=== PATIENT | male | born 1955 | race Caucasian/White ===

== ENCOUNTER 2016-06-15 17:56 | Emergency (ER) | payer OTHER ==
--- NOTE | 2016-06-15 20:33 | ED CLINICAL REPORT ---
Clinical Report - Physicians/Mid Levels [facility] [address] [place] [address] 06/15/2016 17:57 [id number] Time Seen: 18:21 Jun 15 2016. Arrived- By private vehicle. Historian- patient. HISTORY OF PRESENT ILLNESS Chief Complaint: FLANK PAIN. It is described as cramping. Quality not described as "pain". No radiation. It is described as located in the right flank. This started about 1 weeks ago. It is gone now. At its maximum, severity described as moderate. The patient has had nausea. No loss of appetite, vomiting or diarrhea. No additional abdominal pain. (Patient has a history of a weak urinary bladder and self catheterizes. He says he's had several urinary tract infections in the past which progressed to pyelonephritis. He currently feels like he is getting right-sided pyelonephritis again. His lastCT of the urinary tract was about 2 weeks ago and was negative for kidney stones.). Similar symptoms previously: Many times. Recent medical care: The patient was seen recently by a health care provider. REVIEW OF SYSTEMS No constipation, pain with urination, urinary frequency, bloody stools or fever. No calf pain, cough, abdominal pain or dizziness. He has had nasal congestion, chills, difficulty with urination, and joint pain. All systems otherwise negative, except as recorded above. PAST HISTORY See nurses notes. Hypertension. Diabetes mellitus. Has had urinary calculi. No history of heart disease. SOCIAL HISTORY Alcohol use. PHYSICAL EXAM Appearance: Alert. Oriented X3. Eyes: Pupils equal, round and reactive to light. Eyes normal inspection. ENT: Ears normal. Nose normal. Pharynx normal. Neck: Normal inspection. Neck supple. CVS: Normal heart rate and rhythm. Heart sounds normal. Pulses normal. Respiratory: No respiratory distress. Breath sounds normal. Abdomen: Soft and nontender. Back: Moderate CVA tenderness on the right. Skin: Skin warm and dry. Normal skin color. No rash. Normal skin turgor. Extremities: Extremities exhibit normal ROM. No lower extremity edema. Neuro: Oriented X 3. No motor deficit. No sensory deficit. LABS, X-RAYS, AND EKG Laboratory Tests: UA-Culture if indicated: (MC: 06/15/2016 19:13) ( [facility] [place] 19:29) Final results Test Result Flag Units (Reference) URINE COLOR YELLOW URINE APPEARANCE CLEAR URINE GLUCOSE NEGATIVE (NEGATIVE) URINE BILIRUBIN NEGATIVE (NEGATIVE) URINE KETONE NEGATIVE (NEGATIVE) URINE SPECIFIC GRAVITY >= 1.030 (1.010-1.030) URINE PH 5.5 (5.0-8.0) URINE PROTEIN NEGATIVE (NEGATIVE) URINE UROBILINOGEN 0.2 EU/dL (0.2-1.0) URINE NITRITE NEGATIVE (NEGATIVE) URINE BLOOD TRACE-INTACT (NEGATIVE) URINE LEUK ESTERASE NEGATIVE (NEGATIVE) URINE RBC 1-3 rbc/hpf (0-1) URINE WBC 0-1 wbc/hpf (0-1) URINE EPITHELIAL CELLS 1-3 EPI/hpf (0-5) URINE BACTERIA TRACE (<1+) (NONE SEEN) URINE COMMENT CULT NOT INDICATED MUCUS 1+URINE CULTURES ARE SET-UP BASED ON THE FOLLOWING CRITERIA:POSITIVE NITRITEPOSITIVE LEUKOCYTE ESTERASEGREATER THAN 10 WHITE BLOOD CELLSMODERATE (2+) OR GREATER BACTERIA CBC w Diff: (MC: 06/15/2016 19:42) ( [facility] [place] 06/15/2016 19:51) Final results Test Result Flag Units (Reference) WHITE BLOOD COUNT 11.0 K/uL (4.5-11.5) RED BLOOD COUNT 4.88 M/uL (4.50-5.90) HEMOGLOBIN 14.3 gm/dL (13.5-17.5) HEMATOCRIT 42.5 % (41.0-53.0) MEAN CELL VOLUME 87 fL (80-100) MEAN CORPUSCULAR HGB 29 pg (26-34) MEAN CORPUSCULAR HGB CONC 34 g/dL (31-37) RED CELL DISTRIBUTION WIDTH 14.6 % (11.6-14.8) PLATELET COUNT 210 K/uL (150-400) NEUTROPHIL % 60.6 % (50-75) LYMPH % 30.9 % (25-40) MONO % 6.9 % (3-14) EOSINOPHIL % 1.5 % (0-4) BASOPHIL % 0.1 % (0-2) CMP: (MC: 06/15/2016 19:42) ( [facility] 06/15/2016 20:15) Final results Test Result Flag Units (Reference) GLUCOSE 136 H mg/dL (70-110) BUN 17 mg/dL (7-18) CREATININE 0.9 mg/dL (0.6-1.3) Estimated GFR >60 mL/min Estimated GFR- >60 mL/min Note: Persistent reduction over 3 months in eGFR<60 mL/min/1.73 m2 defines CKD. Patients with eGFR values>=60 mL/min/1.73 m2 may also have CKD if evidence ofpersistent proteinuria. Additional information may be foundat www.[email or web address].org. SODIUM 141 mmol/L (136-145) POTASSIUM 4.1 mmol/L (3.5-5.1) CHLORIDE 104 mmol/L (98-107) CARBON DIOXIDE 27 mmol/L (21-32) CALCIUM 8.7 mg/dL (8.5-10.1) TOTAL PROTEIN 7.5 g/dL (6.4-8.2) ALBUMIN 3.6 g/dL (3.3-5.0) BILIRUBIN, TOTAL 0.4 mg/dL (0.0-1.0) ALKALINE PHOSPHATASE 72 U/L (46-116) AST (SGOT) 46 H U/L (15-37) ALT (SGPT) 95 H U/L (12-78) . PROGRESS AND PROCEDURES Course of Care: Patient stable. His urine is not significantly impressive, however, it is safe catheter UA and he has had these symptoms in the past so I think gets quite reasonable to go ahead and treat empirically now with Cipro. Culture ordered. Recommended he follow up here in 48 hours if no significant Improvement. Sooner if any worsening. Disposition: Discharged in stable condition. CLINICAL IMPRESSION Right renal colic. Possible acute urinary tract infection. INSTRUCTIONS Rest at home tomorrow. Drink plenty of fluids. No dietary restrictions. Warnings: Further evaluation is necessary. GENERAL WARNINGS: Return or contact your physician immediately if your condition worsens or changes unexpectedly, if not improving as expected, or if other problems arise. SPECIFICALLY, return if you develop fever, vomiting, the inability to keep fluids down or fainting; or if there is no improvement in the pain in the back. Prescription Medications: Cipro 500 mg: take 1 tab orally every day for 7 days. No refills. Substitution is permissible. Follow-up: Follow up with your doctor in four days even if well. (Electronically signed by Maicol Ramos, 06/16/2016 0:17)
--- NOTE | 2016-06-15 20:33 | ED ORDER SUMMARY ---
..... Patient: JAYME KINSEY OrderSheet [facility] VisitID: [id number] [place] [address] 60y, M Registration Date/Time: 06/15/2016 ORDER SHEET Weight: 125.1 kg (stated) Allergies: NKA GENERAL ORDERS: CBC w Diff Urgent (18:33 06/15/2016 JCoates) (Ack 19:11 CHagerty ER Retail Salesworker) (19:43 ASchmuck) CMP Urgent (18:33 06/15/2016 JCoates) (Ack 19:11 CHagerty ER Retail Salesworker) (19:43 ASchmuck) UA-Culture if indicated Urgent (18:33 06/15/2016 JCoates) (Ack 19:11 CHagerty ER Retail Salesworker) (19:43 ASchmuck) Culture, Urine (Urine, Catheter) Urgent (20:31 06/15/2016 JCoates) (Ack 20:34 CHagerty ER Retail Salesworker) (20:34 CHagerty ER Retail Salesworker) MEDICATION ORDERS: Ciprofloxacin PO 500 mg (NOW) (20:30 06/15/2016 JCoates) (Ack 20:41 ASchmuck) (20:49 ASchmuck) IV FLUIDS: IV NS : initial bolus 1000 mL (1000 mL/hr), then 1000 mL/hr for X1 (NOW) (18:32 06/15/2016 JCoates) (Ack 19:02 SReitz R.N.) (19:55 ASchmuck) Dilaudid IV 0.5 mg (NOW) (18:32 06/15/2016 JCoates) (Ack 19:02 SReitz R.N.) (19:55 ASchmuck) Zofran IV 4 mg (NOW) (18:32 06/15/2016 JCoates) (Ack 19:02 SReitz R.N.) (19:56 ASchmuck) IV Saline Lock (18:33 06/15/2016 JCoates) (Ack 19:02 SReitz R.N.) (19:43 ASchmuck) ORDER SHEET NOTES: [Electronically signed by Ximena Lucas (20:52 06/15/2016)] [Electronically signed by Maicol Ramos (00:17 06/16/2016)] [Electronically locked/signed by Ximena Lucas (20:52 06/15/2016)]
--- NOTE | 2016-06-15 20:33 | ED ORDER SUMMARY ---
..... Patient: JAYME KINSEY OrderSheet [facility] VisitID: [id number] [place] [address] 60y, M Registration Date/Time: 06/15/2016 ORDER SHEET Weight: 125.1 kg (stated) Allergies: NKA GENERAL ORDERS: CBC w Diff Urgent (18:33 06/15/2016 JCoates) (Ack 19:11 CHagerty ER Peer Counselor) (19:43 ASchmuck) CMP Urgent (18:33 06/15/2016 JCoates) (Ack 19:11 CHagerty ER Peer Counselor) (19:43 ASchmuck) UA-Culture if indicated Urgent (18:33 06/15/2016 JCoates) (Ack 19:11 CHagerty ER Peer Counselor) (19:43 ASchmuck) Culture, Urine (Urine, Catheter) Urgent (20:31 06/15/2016 JCoates) (Ack 20:34 CHagerty ER Peer Counselor) (20:34 CHagerty ER Peer Counselor) MEDICATION ORDERS: Ciprofloxacin PO 500 mg (NOW) (20:30 06/15/2016 JCoates) (Ack 20:41 ASchmuck) (20:49 ASchmuck) IV FLUIDS: IV NS : initial bolus 1000 mL (1000 mL/hr), then 1000 mL/hr for X1 (NOW) (18:32 06/15/2016 JCoates) (Ack 19:02 SReitz R.N.) (19:55 ASchmuck) Dilaudid IV 0.5 mg (NOW) (18:32 06/15/2016 JCoates) (Ack 19:02 SReitz R.N.) (19:55 ASchmuck) Zofran IV 4 mg (NOW) (18:32 06/15/2016 JCoates) (Ack 19:02 SReitz R.N.) (19:56 ASchmuck) IV Saline Lock (18:33 06/15/2016 JCoates) (Ack 19:02 SReitz R.N.) (19:43 ASchmuck) ORDER SHEET NOTES: [Electronically signed by Ximena Lucas (20:52 06/15/2016)] [Electronically signed by Maicol Ramos (00:17 06/16/2016)] [Electronically locked/signed by Ximena Lucas (20:52 06/15/2016)]
--- NOTE | 2016-06-15 20:33 | ED NURSING NOTES ---
Clinical Report - Nurses [facility] [address] [place] [address] 06/15/2016 17:57 Patient: JAYME KINSEY TRIAGE Triage time 18:22. Acuity: LEVEL 4. Chief Complaint: TESTICULAR PAIN and DIFFICULTY VOIDING (right flank pain). Alert. No acute distress. ( "Right kidney is hot and inflamed, same for the right testical." Pt. states he has a hx of UTI's and he thinks he may have one tonight or a kidney infection. He said he self cath's which is why he is getting all these infections.). SEPSIS SCREEN: Sepsis Screen. Negative (no infection suspected/documented). KAROLYN COMA SCORE: [place] Coma Scale: 15- eyes open spontaneously (4); best verbal response- oriented x 4 (5); best motor response- obeys commands (6). --18:45 Radha Torres R.N. 18:22 06/15/16. BP: 114/78. HR: 86. RR: 18. O2 saturation: 97%. Temp: 98. F. Pain level now 3/10. --18:45 Radha Torres R.N. Weight: 125.1 kg stated. Height/Length: 70 inches Per Patient. BMI: 39.6. --18:24 Radha Torres R.N. Medications Atorvastatin Calcium Oral (Tablet 10 mg) 1 tablet, daily. Carbidopa-Levodopa Oral 50/200 mg, daily. Lisinopril Oral (Tablet 5 mg) 1 tablet, daily. MetFORMIN HCl Oral 500 mg, 2x a day. Metoprolol Tartrate Oral (Tablet 25 mg) 1 tablet, 2x daily. Propranolol HCl 20mg , 3x a day (prn). Salsalate Oral (Tablet 750 mg) 1 tablet, daily as needed (every 8 hours as needed). --18:41 Radha Torres R.N. Antidepressant. --18:42 Radha Torres R.N. Allergies NKA. --18:41 Melissa, Radha, R.N. History Arrived by private vehicle. Historian: patient. Unaccompanied. Primary physician (Pascual). Onset. (1 week ago). 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 PAST MEDICAL HX: Immunizations: up-to-date. SOCIAL HX: Never smoker. Occasional alcohol use. No drug use. No infectious disease exposure. ABUSE ASSESSMENT: No report of abuse. NUTRITIONAL RISK ASSESSMENT: The nutritional risk assessment revealed no deficiencies. FUNCTIONAL ASSESSMENT: Functional assessment: no impairments noted. LEARNING NEEDS ASSESSMENT: The learning needs assessment revealed no barriers. --18:45 Radha Torres R.N. PROBLEMS: UTI - Urinary Tract Infection. Ureterolithiasis. Nephrolithiasis. COPD - Chronic Obstructive Pulmonary Disease. Contusion. Crush Injury. Diabetes Mellitus. Conjunctivitis. Blepharitis. Influenza. Acute Pain. Back Pain. Nail Avulsion. Chronic Back Pain. Depression. Hyperlipidemia. Wound Infection. Burn. Elevated Cholesterol. Laceration. Hypertension. --18:42 Radha Torres R.N. Renal Colic [RuleOut]. --20:33 Maicol Ramos The following entry was modified by Maicol Ramos, 20:33 <<STRICKEN ENTRY-- Renal Colic. --21:10 Radha Torres R.N. --END STRIKE>>. ADDITIONAL SURGERIES: Appendectomy. --18:42 Radha Torres R.N. Interventions ID band on patient. Ambulatory. --18:45 Radha Torres R.N. PHYSICAL ASSESSMENT Ambulatory to room. GENERAL / NEURO / PSYCH: Alert. Appears in no acute distress. HEENT: Mucous membranes are pink. RESPIRATORY: Respirations not labored. CVS: Capillary refill less than 2 seconds. GI / : Abdomen soft. SKIN: Skin is warm and dry. --18:28 Radha Torres R.N. NURSING PROGRESS NOTES Patient gowned. Head of bed elevated. Two patient identifiers checked. Call light placed in reach. Side rails up x 2. Bed placed in lowest position. Brakes of bed on. Patient ready for evaluation- chart flagged. --18:28 Radha Torres R.N. 19:14 06/15/16. Patient ID band checked for patient name, birthdate and medical record number: patient confirmed. Instructions provided to collect clean catch urine and patient verbalized understanding. Clean catch urine collected with return of yellow-colored clear urine; odor is normal; sample sent to lab for urinalysis and culture. Specimen labeled in the presence of the patient. --19:14 Андрей Wilcox R.N. Care transferred and report given (to WILLEM Bueno). --19:22 Radha Torres R.N. 19:43 06/15/2016 Site #1 started via IV in the left antecubital space with an 20g angiocath, with aseptic technique and good blood return; one attempt. Blood drawn: rainbow set. Labeled in the presence of the patient and sent to the lab. Saline lock flushed with 10 mL saline. --19:43 Ximena Lucas 19:54 06/15/16. BP: 114/68. HR: 85. RR: 18. O2 saturation: 97%. Pain level now: 06/08. --19:55 Ximena Lucas 19:50 06/15/2016 Started bag #1 1000 mL IV Fluids IV NS (Saline); at 1000 mL/hr over 1 hour(s) via site #1 via dial-a-flow. Allergies verified and confirmed 5 rights. IV patency established. IV site checked: no pain, redness, or swelling. IV flushed thoroughly pre- and post-medication administration. --19:55 Ximena Lucas 19:53 06/15/2016 Zofran (Ondansetron HCl) IVP 4 mg given over 1 minute(s) via site #1. Allergies verified and confirmed 5 rights. IV patency established. IV site checked: no pain, redness, or swelling. IV flushed thoroughly pre- and post-medication administration. IVP given by RN. --19:56 Ximena Lucas 19:54 06/15/2016 Dilaudid (HYDROmorphone HCl PF) IVP 0.5 mg given over 30 second(s) via site #1. Allergies verified, confirmed 5 rights and sedative warning given to the patient. IV patency established. IV site checked: no pain, redness, or swelling. IV flushed thoroughly pre- and post-medication administration. IVP given by RN. --19:55 Ximena Lucas 20:44 06/15/2016 Ciprofloxacin (Ciprofloxacin) PO Tablets 500 mg given. Allergies verified and confirmed 5 rights. --20:49 Ximena Lucas 20:49 06/15/2016 Site #1 removed upon discharge. Catheter intact. Pressure dressing applied. --20:49 Ximena Lucas 20:49 06/15/2016 IV Fluids IV NS Discontinued: bag #1 infused upon discharge. Total amount infused: 1000 mL. IV patency established. IV site checked: no pain, redness, or swelling. IV flushed thoroughly. --20:49 Ximena Lucas 20:49 06/15/2016 IV Saline Lock Drip IV Discontinued: bag #1. Total amount infused: 0 mL. --20:49 Ximena Lucas. DISPOSITION / DISCHARGE 20:51 06/15/16. Departure time: 20:51 Jun 15 2016. Condition at departure: improved. The goals identified in the patient's plan of care were met. No learning barriers present. Discharge instructions provided and reviewed with the patient. Reviewed warnings (Patient verbalized understanding of sedation warning. Patient verbalized awareness of warning s/sx listed in dc paperwork.). Reviewed medication(s) side effects, precautions, dosing and course information. Prescription(s) given to the patient (Cipro). Treatments reviewed. Reviewed referral to a primary care physician for followup. Patient verbalized understanding. Written instructions provided in Japanese. The patient was discharged by the physician access services assistant. He was discharged home and accompanied by family. He left the Emergency Department ambulatory and via private vehicle. Family member driving. FALL RISK ASSESSMENT: Fall risk assessment completed. No fall risk identified. --20:51 Ximena Lucas 20:49 06/15/16. BP: 115/51. HR: 91. RR: 17. O2 saturation: 99% on room air. Temp: 97.9 F. Pain level now: 0/10. --20:51 Ximena Lucas. Locked/Released at 06/15/2016 20:52 by Ximena Lucas,
--- NOTE | 2016-06-16 00:17 | ED MAR SUMMARY ---
..... Medication Administration Record [facility] [address] [place] [address] Patient: JAYME KINSEY Visit ID: [id number] 60y, M Weight: 125.1 kg Height/Length: 70 in BMI: 39.6 ALLERGIES: NKA Start 19:50 06/15/2016 Ximena Lucas,, Stop 20:49 06/15/2016 Ximena Lucas, Medication Administered: IV NS (SALINE), Dose: IV Fluids over 1 hour(s), Rate: 1000 mL/hr, Dispensed: 1000 mL bag, Site: #1 left AC. Medication Ordered: IV NS : initial bolus 1000 mL (1000 mL/hr), then 1000 mL/hr for X1 (NOW). Given 19:53 06/15/2016 Ximena Lucas, Medication Administered: ZOFRAN [IVP] (ONDANSETRON HCL), Dose: 4 mg IVP over 1 minute(s), Site: #1 left AC. Medication Ordered: Zofran IV 4 mg (NOW). Given 19:54 06/15/2016 Ximena Lucas, Medication Administered: DILAUDID [IVP] (HYDROMORPHONE HCL PF), Dose: 0.5 mg IVP over 30 second(s), Site: #1 left AC. Medication Ordered: Dilaudid IV 0.5 mg (NOW). Given 20:44 06/15/2016 Ximena Lucas, Medication Administered: CIPROFLOXACIN [PO] (CIPROFLOXACIN), Dose: 500 mg Tablets PO. Medication Ordered: Ciprofloxacin PO 500 mg (NOW).
--- NOTE | 2016-06-16 00:17 | ED MAR SUMMARY ---
..... Medication Administration Record [facility] [address] [place] [address] Patient: JAYME KINSEY Visit ID: [id number] 60y, M Weight: 125.1 kg Height/Length: 70 in BMI: 39.6 ALLERGIES: NKA Start 19:50 06/15/2016 Ximena Lucas,, Stop 20:49 06/15/2016 Ximena Lucas, Medication Administered: IV NS (SALINE), Dose: IV Fluids over 1 hour(s), Rate: 1000 mL/hr, Dispensed: 1000 mL bag, Site: #1 left AC. Medication Ordered: IV NS : initial bolus 1000 mL (1000 mL/hr), then 1000 mL/hr for X1 (NOW). Given 19:53 06/15/2016 Ximena Lucas, Medication Administered: ZOFRAN [IVP] (ONDANSETRON HCL), Dose: 4 mg IVP over 1 minute(s), Site: #1 left AC. Medication Ordered: Zofran IV 4 mg (NOW). Given 19:54 06/15/2016 Ximena Lucas, Medication Administered: DILAUDID [IVP] (HYDROMORPHONE HCL PF), Dose: 0.5 mg IVP over 30 second(s), Site: #1 left AC. Medication Ordered: Dilaudid IV 0.5 mg (NOW). Given 20:44 06/15/2016 Ximena Lucas, Medication Administered: CIPROFLOXACIN [PO] (CIPROFLOXACIN), Dose: 500 mg Tablets PO. Medication Ordered: Ciprofloxacin PO 500 mg (NOW).
--- NOTE | 2016-06-16 00:17 | ED DISCHARGE INSTRUCTIONS ---
Patient: JAYME KINSEY General Instructions [facility] VisitID: [id number] [place] [address] 60y, M Registration Date/Time: 06/15/2016 Right renal colic. INSTRUCTIONS Rest at home tomorrow. Drink plenty of fluids. No dietary restrictions. Warnings: Further evaluation is necessary. GENERAL WARNINGS: Return or contact your physician immediately if your condition worsens or changes unexpectedly, if not improving as expected, or if other problems arise. SPECIFICALLY, return if you develop fever, vomiting, the inability to keep fluids down or fainting; or if there is no improvement in the pain in the back. Prescription Medications: Cipro 500 mg: take 1 tab orally every day for 7 days. No refills. Substitution is permissible. Follow-up: Follow up with your doctor in four days even if well. ADDITIONAL INFORMATION Ciprofloxacin Hydrochloride Oral tablet What is this medicine? CIPROFLOXACIN (sip mayte FLOX a sin) is a quinolone antibiotic. It is used to treat certain kinds of bacterial infections. It will not work for colds, flu, or other viral infections. How should I use this medicine? Take this medicine by mouth with a glass of water. Follow the directions on the prescription label. Take your medicine at regular intervals. Do not take your medicine more often than directed. Take all of your medicine as directed even if you think your are better. Do not skip doses or stop your medicine early. You can take this medicine with food or on an empty stomach. It can be taken with a meal that contains dairy or calcium, but do not take it alone with a dairy product, like milk or yogurt or calcium-fortified juice. A special MedGuide will be given to you by the pharmacist with each prescription and refill. Be sure to read this information carefully each time. Talk to your wood carving lathe operator regarding the use of this medicine in children. Special care may be needed. What side effects may I notice from receiving this medicine? Side effects that you should report to your doctor or health palliative care nurse as soon as possible: - allergic reactions like skin rash, itching or hives, swelling of the face, lips, or tongue - breathing problems - confusion, nightmares or hallucinations - feeling faint or lightheaded, falls - irregular heartbeat - joint, muscle or tendon pain or swelling - pain or trouble passing urine -persistent headache with or without blurred vision - redness, blistering, peeling or loosening of the skin, including inside the mouth - seizure - unusual pain, numbness, tingling, or weakness Side effects that usually do not require medical attention (report to your doctor or health palliative care nurse if they continue or are bothersome): - diarrhea - nausea or stomach upset - white patches or sores in the mouth What may interact with this medicine? Do not take this medicine with any of the following medications: cisapride droperidol terfenadine tizanidine This medicine may also interact with the following medications: antacids caffeine cyclosporin didanosine (ddI) buffered tablets or powder medicines for diabetes medicines for inflammation like ibuprofen, naproxen methotrexate multivitamins omeprazole phenytoin probenecid sucralfate theophylline warfarin What if I miss a dose? If you miss a dose, take it as soon as you can. If it is almost time for your next dose, take only that dose. Do not take double or extra doses. Where should I keep my medicine? Keep out of the reach of children. Store at room temperature below 30 degrees C (86 degrees F). Keep container tightly closed. Throw away any unused medicine after the expiration date. What should I tell my health care provider before I take this medicine? They need to know if you have any of these conditions: -bone problems -cerebral disease -joint problems -irregular heartbeat -kidney disease -liver disease -myasthenia gravis -seizure disorder -tendon problems -an unusual or allergic reaction to ciprofloxacin, other antibiotics or medicines, foods, dyes, or preservatives - or trying to get -breast-feeding What should I watch for while using this medicine? Tell your doctor or health palliative care nurse if your symptoms do not improve. Do not treat diarrhea with over the counter products. Contact your doctor if you have diarrhea that lasts more than 2 days or if it is severe and watery. You may get drowsy or dizzy. Do not drive, use machinery, or do anything that needs mental alertness until you know how this medicine affects you. Do not stand or sit up quickly, especially if you are an older patient. This reduces the risk of dizzy or fainting spells. This medicine can make you more sensitive to the sun. Keep out of the sun. If you cannot avoid being in the sun, wear protective clothing and use sunscreen. Do not use sun lamps or tanning beds/booths. Avoid antacids, aluminum, calcium, iron, magnesium, and zinc products for 6 hours before and 2 hours after taking a dose of this medicine. You have been given the following additional information: Ciprofloxacin Hydrochloride Oral tablet Rest at home tomorrow. (Electronically signed by Maicol Ramos, 06/16/2016 0:17)
--- NOTE | 2016-06-16 00:17 | ED MED RECONCILIATION SUMMARY ---
Patient: JAYME KINSEY Medication Reconciliation Report [facility] VisitID: [id number] [address] [place] [address] 60y, M Registration Date/Time: 06/15/2016 Weight: 125.1 kg Height/Length: 70 in. BMI: 39.6 ALLERGIES: NKA The patient's Home Medications are listed below: THE FOLLOWING MEDICATIONS NEED TO BE RECONCILED: Antidepressant Atorvastatin Calcium Oral (10 mg) 1 tablet, daily Carbidopa-Levodopa Oral 50/200 mg, daily Lisinopril Oral (5 mg) 1 tablet, daily MetFORMIN HCl Oral 500 mg, 2x a day Metoprolol Tartrate Oral (25 mg) 1 tablet, 2x daily Propranolol HCl 20mg , 3x a day, prn Salsalate Oral (750 mg) 1 tablet, daily , every 8 hours as needed The source(s) of the original Home Medication information: Not obtained. The following Medications were given to the patient in the Emergency Department: IV NS IV Fluids bolus 0, then 1000 mL/hr, administered: 06/15/2016 7:50:00 PM Dilaudid [IVP] IVP 0.5 mg, administered: 06/15/2016 7:54:00 PM Zofran [IVP] IVP 4 mg, administered: 06/15/2016 7:53:00 PM Ciprofloxacin [PO] PO 500 mg, administered: 06/15/2016 8:44:00 PM The following Medications were prescribed to the patient: Cipro 500 mg: take 1 tab orally every day for 7 days. No refills. Substitution is permissible. -- Maicol Ramos
--- NOTE | 2016-06-16 00:17 | ED DISCHARGE INSTRUCTIONS ---
Patient: JAYME KINSEY General Instructions [facility] VisitID: [id number] [place] [address] 60y, M Registration Date/Time: 06/15/2016 Right renal colic. INSTRUCTIONS Rest at home tomorrow. Drink plenty of fluids. No dietary restrictions. Warnings: Further evaluation is necessary. GENERAL WARNINGS: Return or contact your physician immediately if your condition worsens or changes unexpectedly, if not improving as expected, or if other problems arise. SPECIFICALLY, return if you develop fever, vomiting, the inability to keep fluids down or fainting; or if there is no improvement in the pain in the back. Prescription Medications: Cipro 500 mg: take 1 tab orally every day for 7 days. No refills. Substitution is permissible. Follow-up: Follow up with your doctor in four days even if well. ADDITIONAL INFORMATION Ciprofloxacin Hydrochloride Oral tablet What is this medicine? CIPROFLOXACIN (sip mayte FLOX a sin) is a quinolone antibiotic. It is used to treat certain kinds of bacterial infections. It will not work for colds, flu, or other viral infections. How should I use this medicine? Take this medicine by mouth with a glass of water. Follow the directions on the prescription label. Take your medicine at regular intervals. Do not take your medicine more often than directed. Take all of your medicine as directed even if you think your are better. Do not skip doses or stop your medicine early. You can take this medicine with food or on an empty stomach. It can be taken with a meal that contains dairy or calcium, but do not take it alone with a dairy product, like milk or yogurt or calcium-fortified juice. A special MedGuide will be given to you by the pharmacist with each prescription and refill. Be sure to read this information carefully each time. Talk to your webfocus developer regarding the use of this medicine in children. Special care may be needed. What side effects may I notice from receiving this medicine? Side effects that you should report to your doctor or health child care team lead as soon as possible: - allergic reactions like skin rash, itching or hives, swelling of the face, lips, or tongue - breathing problems - confusion, nightmares or hallucinations - feeling faint or lightheaded, falls - irregular heartbeat - joint, muscle or tendon pain or swelling - pain or trouble passing urine -persistent headache with or without blurred vision - redness, blistering, peeling or loosening of the skin, including inside the mouth - seizure - unusual pain, numbness, tingling, or weakness Side effects that usually do not require medical attention (report to your doctor or health child care team lead if they continue or are bothersome): - diarrhea - nausea or stomach upset - white patches or sores in the mouth What may interact with this medicine? Do not take this medicine with any of the following medications: cisapride droperidol terfenadine tizanidine This medicine may also interact with the following medications: antacids caffeine cyclosporin didanosine (ddI) buffered tablets or powder medicines for diabetes medicines for inflammation like ibuprofen, naproxen methotrexate multivitamins omeprazole phenytoin probenecid sucralfate theophylline warfarin What if I miss a dose? If you miss a dose, take it as soon as you can. If it is almost time for your next dose, take only that dose. Do not take double or extra doses. Where should I keep my medicine? Keep out of the reach of children. Store at room temperature below 30 degrees C (86 degrees F). Keep container tightly closed. Throw away any unused medicine after the expiration date. What should I tell my health care provider before I take this medicine? They need to know if you have any of these conditions: -bone problems -cerebral disease -joint problems -irregular heartbeat -kidney disease -liver disease -myasthenia gravis -seizure disorder -tendon problems -an unusual or allergic reaction to ciprofloxacin, other antibiotics or medicines, foods, dyes, or preservatives - or trying to get -breast-feeding What should I watch for while using this medicine? Tell your doctor or health child care team lead if your symptoms do not improve. Do not treat diarrhea with over the counter products. Contact your doctor if you have diarrhea that lasts more than 2 days or if it is severe and watery. You may get drowsy or dizzy. Do not drive, use machinery, or do anything that needs mental alertness until you know how this medicine affects you. Do not stand or sit up quickly, especially if you are an older patient. This reduces the risk of dizzy or fainting spells. This medicine can make you more sensitive to the sun. Keep out of the sun. If you cannot avoid being in the sun, wear protective clothing and use sunscreen. Do not use sun lamps or tanning beds/booths. Avoid antacids, aluminum, calcium, iron, magnesium, and zinc products for 6 hours before and 2 hours after taking a dose of this medicine. You have been given the following additional information: Ciprofloxacin Hydrochloride Oral tablet Rest at home tomorrow. (Electronically signed by Maicol Ramos, 06/16/2016 0:17)
--- NOTE | 2016-06-16 00:17 | ED MED RECONCILIATION SUMMARY ---
Patient: JAYME KINSEY Medication Reconciliation Report [facility] VisitID: [id number] [address] [place] [address] 60y, M Registration Date/Time: 06/15/2016 Weight: 125.1 kg Height/Length: 70 in. BMI: 39.6 ALLERGIES: NKA The patient's Home Medications are listed below: THE FOLLOWING MEDICATIONS NEED TO BE RECONCILED: Antidepressant Atorvastatin Calcium Oral (10 mg) 1 tablet, daily Carbidopa-Levodopa Oral 50/200 mg, daily Lisinopril Oral (5 mg) 1 tablet, daily MetFORMIN HCl Oral 500 mg, 2x a day Metoprolol Tartrate Oral (25 mg) 1 tablet, 2x daily Propranolol HCl 20mg , 3x a day, prn Salsalate Oral (750 mg) 1 tablet, daily , every 8 hours as needed The source(s) of the original Home Medication information: Not obtained. The following Medications were given to the patient in the Emergency Department: IV NS IV Fluids bolus 0, then 1000 mL/hr, administered: 06/15/2016 7:50:00 PM Dilaudid [IVP] IVP 0.5 mg, administered: 06/15/2016 7:54:00 PM Zofran [IVP] IVP 4 mg, administered: 06/15/2016 7:53:00 PM Ciprofloxacin [PO] PO 500 mg, administered: 06/15/2016 8:44:00 PM The following Medications were prescribed to the patient: Cipro 500 mg: take 1 tab orally every day for 7 days. No refills. Substitution is permissible. -- Maicol Ramos
== END 2016-06-15 20:51 | disposition home or self-care (01) ==
LOC: ED SRH 17:56
DX: N23 Unspecified renal colic (principal); Z87.440 Personal history of urinary (tract) infections; I10 Essential (primary) hypertension; E11.9 Type 2 diabetes mellitus without complications
CPT/HCPCS: 90004; 90100; 90469; 95059

== ENCOUNTER → 2016-06-27 | Emergency (ER) | payer OTHER ==
--- NOTE | 2016-06-27 16:48 | ED ORDER SUMMARY ---
..... Patient: JAYME KINSEY OrderSheet [facility] VisitID: [id number] [address] [place] [address] 60y, M Registration Date/Time: 06/27/2016 ORDER SHEET Weight: 125.1 kg (stated) Allergies: NKA GENERAL ORDERS: UA-Culture if indicated Urgent (15:08 06/27/2016 Glory A.R.N.P.) (Ack 15:09 Esperanza) (15:20 Ya Mauricio) MEDICATION ORDERS: IV FLUIDS: ORDER SHEET NOTES: [Electronically signed by Ingrid CraigR.N.PBreanne (17:12 06/27/2016)] [Electronically signed by Natasha Shaikh R.N. (19:13 06/27/2016)] [Electronically locked/signed by Natasha Shaikh R.N. (19:13 06/27/2016)]
--- NOTE | 2016-06-27 16:48 | ED NURSING NOTES ---
Clinical Report - Nurses [facility] [address] [place] [address] 06/27/2016 14:41 Patient: JAYME KINSEY TRIAGE Triage time 14:47 Jun 27 2016. Acuity: LEVEL 3. Chief Complaint: TESTICULAR PAIN and (low back pain). Alert. No acute distress. --14:54 Natasha Shaikh R.N. 14:47 06/27/16. BP: 112/73. HR: 80. RR: 20. O2 saturation: 99%. Temp: 98 F. Pain level now: 06/08. --14:54 Natasha Shaikh R.N. Weight: 125.1 kg stated. Height/Length: 70 inches Per Patient. BMI: 39.6. --14:53 Natasha Shaikh R.N. Medications Atorvastatin Calcium Oral (Tablet 10 mg) 1 tablet, daily. Carbidopa-Levodopa Oral 50/200 mg, daily. Lisinopril Oral (Tablet 5 mg) 1 tablet, daily. MetFORMIN HCl Oral 500 mg, 2x a day. Metoprolol Tartrate Oral (Tablet 25 mg) 1 tablet, 2x daily. Propranolol HCl 20mg , 3x a day (prn). Salsalate Oral (Tablet 750 mg) 1 tablet, daily as needed (every 8 hours as needed). --14:50 Natasha Shaikh R.N. Allergies NKA. --14:50 Natasha Shaikh R.N. History Arrived by private vehicle. Historian: patient. This is a recurrent problem. (about 1 weeks). He has had fever and testicular pain. 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 SOCIAL HX: Never smoker. Occasional alcohol use. No drug use. No infectious disease exposure. FALL RISK ASSESSMENT: Fall risk assessment completed. No fall risk identified. NUTRITIONAL RISK ASSESSMENT: The nutritional risk assessment revealed no deficiencies. FUNCTIONAL ASSESSMENT: Functional assessment: no impairments noted. LEARNING NEEDS ASSESSMENT: The learning needs assessment revealed no barriers. ABUSE ASSESSMENT: Abuse assessment: The patient was asked "Do you feel safe in your home?". SKIN INTEGRITY ASSESSMENT: Skin integrity risk assessment completed. No skin integrity risk identified. --14:54 Natasha Shaikh R.N. PROBLEMS: Urinary Calculi. UTI - Urinary Tract Infection. Ureterolithiasis. Nephrolithiasis. COPD - Chronic Obstructive Pulmonary Disease. Contusion. Crush Injury. Diabetes Mellitus. Conjunctivitis. Blepharitis. Influenza. Acute Pain. Back Pain. Nail Avulsion. Suture Removal. Chronic Back Pain. Depression. Hyperlipidemia. Wound Infection. Burn. Immunizations. Last Tetanus. Elevated Cholesterol. Tetanus Status. Laceration. Hypertension. --14:51 Natasha Shaikh R.N. Renal Colic [RuleOut]. UTI - Urinary Tract Infection [RuleOut]. --14:51 Natasha Shaikh R.N. ADDITIONAL SURGERIES: Appendectomy. --14:51 Natasha Shaikh R.N. Lithotripsy. --14:52 Natasha Shaikh R.N. Interventions ID and allergy band on patient. To room. --14:54 Natasha Shaikh R.N. PHYSICAL ASSESSMENT GENERAL / NEURO / PSYCH: Alert. Oriented X 4. Appears in no acute distress. RESPIRATORY: Respirations not labored. CVS: Capillary refill less than 2 seconds. GI / : Abdominal tenderness. SKIN: Skin is warm and dry. --14:55 Natasha Shaikh R.N. NURSING PROGRESS NOTES Patient gowned. Head of bed elevated. Two patient identifiers checked. Call light placed in reach. Side rails up x 1. Bed placed in lowest position. Brakes of bed on. Patient ready for evaluation- chart flagged. --14:55 Natasha Shaikh R.N. DISPOSITION / DISCHARGE 17:01 06/27/16. BP: 124/70. HR: 97. O2 saturation: 97%. Pain level now: 05/08. --17:02 Natasha Shaikh R.N. Departure time: 17:Jun 27 2016. Condition at departure: unchanged. No learning barriers present. Discharge instructions provided and reviewed with the patient. Reviewed medication(s) side effects, precautions, dosing and course information. Patient verbalized understanding. Written instructions provided in Austrian. The patient was discharged home. He left the Emergency Department ambulatory and via private vehicle. Spouse driving (spousal). --17:03 Natasha Shaikh R.N. Locked/Released at 06/27/2016 19:13 by Natasha Shaikh R.N.
--- NOTE | 2016-06-27 16:48 | ED CLINICAL REPORT ---
Clinical Report - Physicians/Mid Levels [facility] [address] [place] [address] 06/27/2016 14:41 Patient: JAYME KINSEY Time Seen: 14:57; upon arrival, initial patient contact, initial documentation, patient care assumed. Arrived- By private vehicle. Historian- patient. HISTORY OF PRESENT ILLNESS Chief Complaint: TESTICULAR PAIN. This started about 1 weeks ago and is still present. The problem is described as moderate. No penile discharge, discomfort with urination, urinary frequency, genital lesion or urgency of urination. No Byrd catheter problem, inguinal swelling or problem with the foreskin. The patient has had testicular pain. He has had mild, constant right-sided flank pain. Able to void. Not voiding only small amounts. Sexual history is noncontributory. (self caths 4-6xdaily, was taking cipro, but thinks cipro isn't working anymore). Similar symptoms previously: Chronically, as bad. Recent medical care: Not recently seen/assessed. REVIEW OF SYSTEMS The patient has had fever of 99 F, flank pain and mild, constant abdominal pain. The pain is described as located in the suprapubic region and lower abdomen. No hematuria, vomiting, diarrhea, chest pain or difficulty breathing. All systems otherwise negative, except as recorded above. PAST HISTORY See nurses notes. ( PROBLEMS: Urinary Calculi. UTI - Urinary Tract Infection. Ureterolithiasis. Nephrolithiasis. COPD - Chronic Obstructive Pulmonary Disease. Contusion. Crush Injury. Diabetes Mellitus. Conjunctivitis. Blepharitis. Influenza. Acute Pain. Back Pain. Nail Avulsion. Suture Removal. Chronic Back Pain. Depression. Hyperlipidemia. Wound Infection. Burn. Immunizations. Last Tetanus. Elevated Cholesterol. Tetanus Status. Laceration. Hypertension. --14:51 Natasha Shaikh R.N. Renal Colic [RuleOut]. UTI - Urinary Tract Infection [RuleOut]. --14:51 Natasha Shaikh R.N. ADDITIONAL SURGERIES: Appendectomy. --14:51 Knebel, Natasha, R.N. Lithotripsy. --14:52 Natasha Shaikh R.N.). SOCIAL HISTORY Never smoker. Occasional alcohol use. No drug use. No recent travel. Is a local resident. FAMILY HISTORY Negative. ADDITIONAL NOTES The nursing notes have been reviewed with agreement regarding the chief complaint, HPI, ROS, PMH and patient medications and allergies. PHYSICAL EXAM Vital Signs: 06/27/2016 14:47 BP: 112/73. HR: 80. RR: 20. O2 saturation: 99%. Temp: 98 F. Pain level now: 210. Have been reviewed as normal and appear to be correct. Appearance: Alert. Oriented X3. No acute distress. (pt self cathing himself upon entering room). ENT: Normal external inspection. Pharynx normal. Neck: Neck supple. CVS: Heart sounds normal. Respiratory: No respiratory distress. Breath sounds normal. Abdomen: Soft and nontender. Moderately obese. Back: Abnormal external inspection. Mild CVA tenderness on the right. Skin: Skin warm and dry. Normal skin color. No rash. Normal skin turgor. Extremities: Extremities exhibit normal ROM. No lower extremity edema. Neuro: Oriented X 3. No motor deficit. No sensory deficit. LABS, X-RAYS, AND EKG Laboratory Tests: UA-Culture if indicated: (MC: 06/27/2016 15:15) ( MsgRcvd 06/27/2016 16:36) Final results Test Result Flag Units (Reference) URINE COLOR YELLOW URINE APPEARANCE CLEAR URINE GLUCOSE 2+ (NEGATIVE) URINE BILIRUBIN NEGATIVE (NEGATIVE) URINE KETONE NEGATIVE (NEGATIVE) URINE SPECIFIC GRAVITY 1.025 (1.010-1.030) URINE PH 6.0 (5.0-8.0) URINE PROTEIN NEGATIVE (NEGATIVE) URINE UROBILINOGEN 0.2 EU/dL (0.2-1.0) URINE NITRITE POSITIVE (NEGATIVE) URINE BLOOD NEGATIVE (NEGATIVE) URINE LEUK ESTERASE NEGATIVE (NEGATIVE) URINE RBC 1-3 rbc/hpf (0-1) URINE WBC 1-3 wbc/hpf (0-1) URINE EPITHELIAL CELLS 1-3 EPI/hpf (0-5) URINE BACTERIA MODERATE (2+ TO 3+) (NONE SEEN) URINE COMMENT CULTURE INDICATED AMORPHOUS 1+URINE CULTURES ARE SET-UP BASED ON THE FOLLOWING CRITERIA:POSITIVE NITRITEPOSITIVE LEUKOCYTE ESTERASEGREATER THAN 10 WHITE BLOOD CELLSMODERATE (2+) OR GREATER BACTERIA . PROGRESS AND PROCEDURES Patient counseled in person regarding the patient's stable condition, test results and diagnosis. 16:45. Differential Diagnosis: Other possible considerations: uti, pyelo, urosepsis, renal stone, renal insufficiency. Above considerations are based on history and physical exam. Differential diagnosis was discussed with patient. Disposition: Discharged home in good and unchanged condition (16:48). Condition: good and stable. CLINICAL IMPRESSION Chronic urinary tract infection with cystitis. No pyelonephritis or hematuria. Not associated with indwelling catheter or obstruction. INSTRUCTIONS Drink plenty of fluids. Warnings: GENERAL WARNINGS: Return or contact your physician immediately if your condition worsens or changes unexpectedly, if not improving as expected, or if other problems arise. Specifically return if problem worsens. Prescription Medications: Macrobid 100 mg: Take 1 capsule orally every 12 hours for 7 days. No refills. Substitution is permissible. Follow-up: Follow up with your doctor in about three days even if well. Call for an appointment. Summary of care provided to patient. Understanding of the discharge instructions verbalized by patient. Follow-up with: Rocco Singleton MD, Urology, , [address] [place] [address] Follow up in about three days as needed. Call for an appointment. Summary of care provided to patient. (Electronically signed by Ingrid Craig A.R.N.P. 06/27/2016 17:12)
--- NOTE | 2016-06-27 16:48 | ED CLINICAL REPORT ---
Clinical Report - Physicians/Mid Levels [facility] [address] [place] [address] 06/27/2016 14:41 Patient: JAYME KINSEY Time Seen: 14:57; upon arrival, initial patient contact, initial documentation, patient care assumed. Arrived- By private vehicle. Historian- patient. HISTORY OF PRESENT ILLNESS Chief Complaint: TESTICULAR PAIN. This started about 1 weeks ago and is still present. The problem is described as moderate. No penile discharge, discomfort with urination, urinary frequency, genital lesion or urgency of urination. No Byrd catheter problem, inguinal swelling or problem with the foreskin. The patient has had testicular pain. He has had mild, constant right-sided flank pain. Able to void. Not voiding only small amounts. Sexual history is noncontributory. (self caths 4-6xdaily, was taking cipro, but thinks cipro isn't working anymore). Similar symptoms previously: Chronically, as bad. Recent medical care: Not recently seen/assessed. REVIEW OF SYSTEMS The patient has had fever of 99 F, flank pain and mild, constant abdominal pain. The pain is described as located in the suprapubic region and lower abdomen. No hematuria, vomiting, diarrhea, chest pain or difficulty breathing. All systems otherwise negative, except as recorded above. PAST HISTORY See nurses notes. ( PROBLEMS: Urinary Calculi. UTI - Urinary Tract Infection. Ureterolithiasis. Nephrolithiasis. COPD - Chronic Obstructive Pulmonary Disease. Contusion. Crush Injury. Diabetes Mellitus. Conjunctivitis. Blepharitis. Influenza. Acute Pain. Back Pain. Nail Avulsion. Suture Removal. Chronic Back Pain. Depression. Hyperlipidemia. Wound Infection. Burn. Immunizations. Last Tetanus. Elevated Cholesterol. Tetanus Status. Laceration. Hypertension. --14:51 Natasha Shaikh R.N. Renal Colic [RuleOut]. UTI - Urinary Tract Infection [RuleOut]. --14:51 Natasha Shaikh R.N. ADDITIONAL SURGERIES: Appendectomy. --14:51 Knebel, Natasha, R.N. Lithotripsy. --14:52 Natasha Shaikh R.N.). SOCIAL HISTORY Never smoker. Occasional alcohol use. No drug use. No recent travel. Is a local resident. FAMILY HISTORY Negative. ADDITIONAL NOTES The nursing notes have been reviewed with agreement regarding the chief complaint, HPI, ROS, PMH and patient medications and allergies. PHYSICAL EXAM Vital Signs: 06/27/2016 14:47 BP: 112/73. HR: 80. RR: 20. O2 saturation: 99%. Temp: 98 F. Pain level now: 210. Have been reviewed as normal and appear to be correct. Appearance: Alert. Oriented X3. No acute distress. (pt self cathing himself upon entering room). ENT: Normal external inspection. Pharynx normal. Neck: Neck supple. CVS: Heart sounds normal. Respiratory: No respiratory distress. Breath sounds normal. Abdomen: Soft and nontender. Moderately obese. Back: Abnormal external inspection. Mild CVA tenderness on the right. Skin: Skin warm and dry. Normal skin color. No rash. Normal skin turgor. Extremities: Extremities exhibit normal ROM. No lower extremity edema. Neuro: Oriented X 3. No motor deficit. No sensory deficit. LABS, X-RAYS, AND EKG Laboratory Tests: UA-Culture if indicated: (MC: 06/27/2016 15:15) ( MsgRcvd 06/27/2016 16:36) Final results Test Result Flag Units (Reference) URINE COLOR YELLOW URINE APPEARANCE CLEAR URINE GLUCOSE 2+ (NEGATIVE) URINE BILIRUBIN NEGATIVE (NEGATIVE) URINE KETONE NEGATIVE (NEGATIVE) URINE SPECIFIC GRAVITY 1.025 (1.010-1.030) URINE PH 6.0 (5.0-8.0) URINE PROTEIN NEGATIVE (NEGATIVE) URINE UROBILINOGEN 0.2 EU/dL (0.2-1.0) URINE NITRITE POSITIVE (NEGATIVE) URINE BLOOD NEGATIVE (NEGATIVE) URINE LEUK ESTERASE NEGATIVE (NEGATIVE) URINE RBC 1-3 rbc/hpf (0-1) URINE WBC 1-3 wbc/hpf (0-1) URINE EPITHELIAL CELLS 1-3 EPI/hpf (0-5) URINE BACTERIA MODERATE (2+ TO 3+) (NONE SEEN) URINE COMMENT CULTURE INDICATED AMORPHOUS 1+URINE CULTURES ARE SET-UP BASED ON THE FOLLOWING CRITERIA:POSITIVE NITRITEPOSITIVE LEUKOCYTE ESTERASEGREATER THAN 10 WHITE BLOOD CELLSMODERATE (2+) OR GREATER BACTERIA . PROGRESS AND PROCEDURES Patient counseled in person regarding the patient's stable condition, test results and diagnosis. 16:45. Differential Diagnosis: Other possible considerations: uti, pyelo, urosepsis, renal stone, renal insufficiency. Above considerations are based on history and physical exam. Differential diagnosis was discussed with patient. Disposition: Discharged home in good and unchanged condition (16:48). Condition: good and stable. CLINICAL IMPRESSION Chronic urinary tract infection with cystitis. No pyelonephritis or hematuria. Not associated with indwelling catheter or obstruction. INSTRUCTIONS Drink plenty of fluids. Warnings: GENERAL WARNINGS: Return or contact your physician immediately if your condition worsens or changes unexpectedly, if not improving as expected, or if other problems arise. Specifically return if problem worsens. Prescription Medications: Macrobid 100 mg: Take 1 capsule orally every 12 hours for 7 days. No refills. Substitution is permissible. Follow-up: Follow up with your doctor in about three days even if well. Call for an appointment. Summary of care provided to patient. Understanding of the discharge instructions verbalized by patient. Follow-up with: Rocco Singleton MD, Urology, , [address] [place] [address] Follow up in about three days as needed. Call for an appointment. Summary of care provided to patient. (Electronically signed by Ingrid Craig A.R.N.P. 06/27/2016 17:12)
--- NOTE | 2016-06-27 16:48 | ED ORDER SUMMARY ---
..... Patient: JAYME KINSEY OrderSheet [facility] VisitID: [id number] [address] [place] [address] 60y, M Registration Date/Time: 06/27/2016 ORDER SHEET Weight: 125.1 kg (stated) Allergies: NKA GENERAL ORDERS: UA-Culture if indicated Urgent (15:08 06/27/2016 Glory A.R.N.P.) (Ack 15:09 Esperanza) (15:20 Ya Mauricio) MEDICATION ORDERS: IV FLUIDS: ORDER SHEET NOTES: [Electronically signed by Ingrid CraigR.N.PBreanne (17:12 06/27/2016)] [Electronically signed by Natasha Shaikh R.N. (19:13 06/27/2016)] [Electronically locked/signed by Natasha Shaikh R.N. (19:13 06/27/2016)]
--- NOTE | 2016-06-27 16:48 | ED NURSING NOTES ---
Clinical Report - Nurses [facility] [address] [place] [address] 06/27/2016 14:41 Patient: JAYME KINSEY TRIAGE Triage time 14:47 Jun 27 2016. Acuity: LEVEL 3. Chief Complaint: TESTICULAR PAIN and (low back pain). Alert. No acute distress. --14:54 Natasha Shaikh R.N. 14:47 06/27/16. BP: 112/73. HR: 80. RR: 20. O2 saturation: 99%. Temp: 98 F. Pain level now: 06/08. --14:54 Natasha Shaikh R.N. Weight: 125.1 kg stated. Height/Length: 70 inches Per Patient. BMI: 39.6. --14:53 Natasha Shaikh R.N. Medications Atorvastatin Calcium Oral (Tablet 10 mg) 1 tablet, daily. Carbidopa-Levodopa Oral 50/200 mg, daily. Lisinopril Oral (Tablet 5 mg) 1 tablet, daily. MetFORMIN HCl Oral 500 mg, 2x a day. Metoprolol Tartrate Oral (Tablet 25 mg) 1 tablet, 2x daily. Propranolol HCl 20mg , 3x a day (prn). Salsalate Oral (Tablet 750 mg) 1 tablet, daily as needed (every 8 hours as needed). --14:50 Natasha Shaikh R.N. Allergies NKA. --14:50 Natasha Shaikh R.N. History Arrived by private vehicle. Historian: patient. This is a recurrent problem. (about 1 weeks). He has had fever and testicular pain. 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 SOCIAL HX: Never smoker. Occasional alcohol use. No drug use. No infectious disease exposure. FALL RISK ASSESSMENT: Fall risk assessment completed. No fall risk identified. NUTRITIONAL RISK ASSESSMENT: The nutritional risk assessment revealed no deficiencies. FUNCTIONAL ASSESSMENT: Functional assessment: no impairments noted. LEARNING NEEDS ASSESSMENT: The learning needs assessment revealed no barriers. ABUSE ASSESSMENT: Abuse assessment: The patient was asked "Do you feel safe in your home?". SKIN INTEGRITY ASSESSMENT: Skin integrity risk assessment completed. No skin integrity risk identified. --14:54 Natasha Shaikh R.N. PROBLEMS: Urinary Calculi. UTI - Urinary Tract Infection. Ureterolithiasis. Nephrolithiasis. COPD - Chronic Obstructive Pulmonary Disease. Contusion. Crush Injury. Diabetes Mellitus. Conjunctivitis. Blepharitis. Influenza. Acute Pain. Back Pain. Nail Avulsion. Suture Removal. Chronic Back Pain. Depression. Hyperlipidemia. Wound Infection. Burn. Immunizations. Last Tetanus. Elevated Cholesterol. Tetanus Status. Laceration. Hypertension. --14:51 Natasha Shaikh R.N. Renal Colic [RuleOut]. UTI - Urinary Tract Infection [RuleOut]. --14:51 Natasha Shaikh R.N. ADDITIONAL SURGERIES: Appendectomy. --14:51 Natasha Shaikh R.N. Lithotripsy. --14:52 Natasha Shaikh R.N. Interventions ID and allergy band on patient. To room. --14:54 Natasha Shaikh R.N. PHYSICAL ASSESSMENT GENERAL / NEURO / PSYCH: Alert. Oriented X 4. Appears in no acute distress. RESPIRATORY: Respirations not labored. CVS: Capillary refill less than 2 seconds. GI / : Abdominal tenderness. SKIN: Skin is warm and dry. --14:55 Natasha Shaikh R.N. NURSING PROGRESS NOTES Patient gowned. Head of bed elevated. Two patient identifiers checked. Call light placed in reach. Side rails up x 1. Bed placed in lowest position. Brakes of bed on. Patient ready for evaluation- chart flagged. --14:55 Natasha Shaikh R.N. DISPOSITION / DISCHARGE 17:01 06/27/16. BP: 124/70. HR: 97. O2 saturation: 97%. Pain level now: 05/08. --17:02 Natasha Shaikh R.N. Departure time: 17:Jun 27 2016. Condition at departure: unchanged. No learning barriers present. Discharge instructions provided and reviewed with the patient. Reviewed medication(s) side effects, precautions, dosing and course information. Patient verbalized understanding. Written instructions provided in Eritrean. The patient was discharged home. He left the Emergency Department ambulatory and via private vehicle. Spouse driving (spousal). --17:03 Natasha Shaikh R.N. Locked/Released at 06/27/2016 19:13 by Natasha Shaikh R.N.
--- NOTE | 2016-06-27 19:13 | ED DISCHARGE INSTRUCTIONS ---
Patient: JAYME KINSEY General Instructions [facility] VisitID: [id number] [place] [address] 60y, M Registration Date/Time: 06/27/2016 Chronic urinary tract infection with cystitis. No pyelonephritis or hematuria. Not associated with indwelling catheter or obstruction. INSTRUCTIONS Drink plenty of fluids. Warnings: GENERAL WARNINGS: Return or contact your physician immediately if your condition worsens or changes unexpectedly, if not improving as expected, or if other problems arise. Specifically return if problem worsens. Prescription Medications: Macrobid 100 mg: Take 1 capsule orally every 12 hours for 7 days. No refills. Substitution is permissible. Follow-up: Follow up with your doctor in about three days even if well. Call for an appointment. Summary of care provided to patient. Understanding of the discharge instructions verbalized by patient. Follow-up with: Rocco Singleton MD, Urology, , [address] [place] [address] Follow up in about three days as needed. Call for an appointment. Summary of care provided to patient. ADDITIONAL INFORMATION Bladder Infection,Male (Adult) A bladder infection ("cystitis" or "UTI") usually causes a constant urge to urinate, and a burning when passing urine. Urine may be cloudy, smelly or dark. There may be also be pain in the lower abdomen. Cystitis in males is not common. It may be caused by a partial blockage in the urinary system that keeps the bladder from emptying completely. This is most often related to an enlarged prostate gland. Home Care: Drink lots of fluids (at least 6-8 glasses a day). This will flush the bacteria out of your bladder. Avoid sexual intercourse until your symptoms are gone. Avoid caffeine, alcohol, and spicy foods. They could irritate the bladder. A bladder infection is treated with antibiotics. You may also be given Pyridium (generic - phenazopyridine) to reduce burning with urination. This will cause urine to become a bright orange color, which can stain clothing. Follow Up with your doctor or this facility if ALL symptoms have not cleared within five days. It is important to keep your follow up appointment to discuss with your doctor the need for further tests of the urinary tract. Get Prompt Medical Attention if any of the following occur: Fever of 100.4F (38C) or higher, or as directed by your healthcare provider No improvement by the third day of treatment Increasing back or abdominal pain Repeated vomiting; unable to keep medicine down Weakness, dizziness or fainting Nitrofurantoin, Nitrofurantoin, Macrocrystalline Oral capsule What is this medicine? NITROFURANTOIN (sherman DANIEL toyn) is an antibiotic. It is used to treat urinary tract infections. How should I use this medicine? Take this medicine by mouth with a glass of water. Follow the directions on the prescription label. Take this medicine with food or milk. Take your doses at regular intervals. Do not take your medicine more often than directed. Do not stop taking except on your doctor's advice. Talk to your geriatric aide regarding the use of this medicine in children. While this drug may be prescribed for selected conditions, precautions do apply. What side effects may I notice from receiving this medicine? Side effects that you should report to your doctor or health critical care physician assistant as soon as possible: allergic reactions like skin rash or hives, swelling of the face, lips, or tongue chest pain cough difficulty breathing dizziness, drowsiness fever or infection joint aches or pains pale or blue-tinted skin redness, blistering, peeling or loosening of the skin, including inside the mouth tingling, burning, pain, or numbness in hands or feet unusual bleeding or bruising unusually weak or tired yellowing of eyes or skin Side effects that usually do not require medical attention (report to your doctor or health critical care physician assistant if they continue or are bothersome): dark urine diarrhea headache loss of appetite nausea or vomiting temporary hair loss What may interact with this medicine? antacids containing magnesium trisilicate probenecid quinolone antibiotics like ciprofloxacin, lomefloxacin, norfloxacin and ofloxacin sulfinpyrazone What if I miss a dose? If you miss a dose, take it as soon as you can. If it is almost time for your next dose, take only that dose. Do not take double or extra doses. Where should I keep my medicine? Keep out of the reach of children. Store at room temperature between 15 and 30 degrees C (59 and 86 degrees F). Protect from light. Throw away any unused medicine after the expiration date. What should I tell my health care provider before I take this medicine? They need to know if you have any of these conditions: anemia diabetes [id number] dehydrogenase deficiency kidney disease liver disease lung disease other chronic illness an unusual or allergic reaction to nitrofurantoin, other antibiotics, other medicines, foods, dyes or preservatives or trying to get breast-feeding What should I watch for while using this medicine? Tell your doctor or health critical care physician assistant if your symptoms do not improve or if you get new symptoms. Drink several glasses of water a day. If you are taking this medicine for a long time, visit your doctor for regular checks on your progress. If you are diabetic, you may get a false positive result for sugar in your urine with certain brands of urine tests. Check with your doctor. You have been given the following additional information: Bladder Infection, Male (Adult) Nitrofurantoin, Nitrofurantoin, Macrocrystalline Oral capsule (Electronically signed by Ingrid Craig A.R.N.P. 06/27/2016 17:12)
--- NOTE | 2016-06-27 19:13 | ED DISCHARGE INSTRUCTIONS ---
Patient: JAYME KINSEY General Instructions [facility] VisitID: [id number] [place] [address] 60y, M Registration Date/Time: 06/27/2016 Chronic urinary tract infection with cystitis. No pyelonephritis or hematuria. Not associated with indwelling catheter or obstruction. INSTRUCTIONS Drink plenty of fluids. Warnings: GENERAL WARNINGS: Return or contact your physician immediately if your condition worsens or changes unexpectedly, if not improving as expected, or if other problems arise. Specifically return if problem worsens. Prescription Medications: Macrobid 100 mg: Take 1 capsule orally every 12 hours for 7 days. No refills. Substitution is permissible. Follow-up: Follow up with your doctor in about three days even if well. Call for an appointment. Summary of care provided to patient. Understanding of the discharge instructions verbalized by patient. Follow-up with: Rocco Singleton MD, Urology, , [address] [place] [address] Follow up in about three days as needed. Call for an appointment. Summary of care provided to patient. ADDITIONAL INFORMATION Bladder Infection,Male (Adult) A bladder infection ("cystitis" or "UTI") usually causes a constant urge to urinate, and a burning when passing urine. Urine may be cloudy, smelly or dark. There may be also be pain in the lower abdomen. Cystitis in males is not common. It may be caused by a partial blockage in the urinary system that keeps the bladder from emptying completely. This is most often related to an enlarged prostate gland. Home Care: Drink lots of fluids (at least 6-8 glasses a day). This will flush the bacteria out of your bladder. Avoid sexual intercourse until your symptoms are gone. Avoid caffeine, alcohol, and spicy foods. They could irritate the bladder. A bladder infection is treated with antibiotics. You may also be given Pyridium (generic - phenazopyridine) to reduce burning with urination. This will cause urine to become a bright orange color, which can stain clothing. Follow Up with your doctor or this facility if ALL symptoms have not cleared within five days. It is important to keep your follow up appointment to discuss with your doctor the need for further tests of the urinary tract. Get Prompt Medical Attention if any of the following occur: Fever of 100.4F (38C) or higher, or as directed by your healthcare provider No improvement by the third day of treatment Increasing back or abdominal pain Repeated vomiting; unable to keep medicine down Weakness, dizziness or fainting Nitrofurantoin, Nitrofurantoin, Macrocrystalline Oral capsule What is this medicine? NITROFURANTOIN (sherman DANIEL toyn) is an antibiotic. It is used to treat urinary tract infections. How should I use this medicine? Take this medicine by mouth with a glass of water. Follow the directions on the prescription label. Take this medicine with food or milk. Take your doses at regular intervals. Do not take your medicine more often than directed. Do not stop taking except on your doctor's advice. Talk to your design checker regarding the use of this medicine in children. While this drug may be prescribed for selected conditions, precautions do apply. What side effects may I notice from receiving this medicine? Side effects that you should report to your doctor or health care technician as soon as possible: allergic reactions like skin rash or hives, swelling of the face, lips, or tongue chest pain cough difficulty breathing dizziness, drowsiness fever or infection joint aches or pains pale or blue-tinted skin redness, blistering, peeling or loosening of the skin, including inside the mouth tingling, burning, pain, or numbness in hands or feet unusual bleeding or bruising unusually weak or tired yellowing of eyes or skin Side effects that usually do not require medical attention (report to your doctor or health care technician if they continue or are bothersome): dark urine diarrhea headache loss of appetite nausea or vomiting temporary hair loss What may interact with this medicine? antacids containing magnesium trisilicate probenecid quinolone antibiotics like ciprofloxacin, lomefloxacin, norfloxacin and ofloxacin sulfinpyrazone What if I miss a dose? If you miss a dose, take it as soon as you can. If it is almost time for your next dose, take only that dose. Do not take double or extra doses. Where should I keep my medicine? Keep out of the reach of children. Store at room temperature between 15 and 30 degrees C (59 and 86 degrees F). Protect from light. Throw away any unused medicine after the expiration date. What should I tell my health care provider before I take this medicine? They need to know if you have any of these conditions: anemia diabetes gkgslqb-1-nuesfauhg dehydrogenase deficiency kidney disease liver disease lung disease other chronic illness an unusual or allergic reaction to nitrofurantoin, other antibiotics, other medicines, foods, dyes or preservatives or trying to get breast-feeding What should I watch for while using this medicine? Tell your doctor or health care technician if your symptoms do not improve or if you get new symptoms. Drink several glasses of water a day. If you are taking this medicine for a long time, visit your doctor for regular checks on your progress. If you are diabetic, you may get a false positive result for sugar in your urine with certain brands of urine tests. Check with your doctor. You have been given the following additional information: Bladder Infection, Male (Adult) Nitrofurantoin, Nitrofurantoin, Macrocrystalline Oral capsule (Electronically signed by Ingrid Craig A.R.N.P. 06/27/2016 17:12)
--- NOTE | 2016-06-27 19:14 | ED MED RECONCILIATION SUMMARY ---
Patient: JAYME KINSEY Medication Reconciliation Report [facility] VisitID: [id number] [address] [place] [address] 60y, M Registration Date/Time: 06/27/2016 Weight: 125.1 kg Height/Length: 70 in. BMI: 39.6 ALLERGIES: NKA The patient's Home Medications are listed below: THE FOLLOWING MEDICATIONS NEED TO BE RECONCILED: Atorvastatin Calcium Oral (10 mg) 1 tablet, daily Carbidopa-Levodopa Oral 50/200 mg, daily Lisinopril Oral (5 mg) 1 tablet, daily MetFORMIN HCl Oral 500 mg, 2x a day Metoprolol Tartrate Oral (25 mg) 1 tablet, 2x daily Propranolol HCl 20mg , 3x a day, prn Salsalate Oral (750 mg) 1 tablet, daily , every 8 hours as needed The source(s) of the original Home Medication information: Not obtained. The following Medications were given to the patient in the Emergency Department: None. The following Medications were prescribed to the patient: Macrobid 100 mg: Take 1 capsule orally every 12 hours for 7 days. No refills. Substitution is permissible. -- Ingrid Craig A.R.N.P.
--- NOTE | 2016-06-27 19:14 | ED MAR SUMMARY ---
..... Medication Administration Record [facility] [address] [place] [id number] Patient: JAYME KINSEY Visit ID: [id number] 60y, M Weight: 125.1 kg Height/Length: 70 in BMI: 39.6 ALLERGIES: NKA
--- NOTE | 2016-06-27 19:14 | ED MAR SUMMARY ---
..... Medication Administration Record [facility] [address] [place], [place] [id number] Patient: JAYME KINSEY Visit ID: [id number] 60y, M Weight: 125.1 kg Height/Length: 70 in BMI: 39.6 ALLERGIES: NKA
--- NOTE | 2016-06-27 19:14 | ED MED RECONCILIATION SUMMARY ---
Patient: JAYME KINSEY Medication Reconciliation Report [facility] VisitID: [id number] [address] [place] [address] 60y, M Registration Date/Time: 06/27/2016 Weight: 125.1 kg Height/Length: 70 in. BMI: 39.6 ALLERGIES: NKA The patient's Home Medications are listed below: THE FOLLOWING MEDICATIONS NEED TO BE RECONCILED: Atorvastatin Calcium Oral (10 mg) 1 tablet, daily Carbidopa-Levodopa Oral 50/200 mg, daily Lisinopril Oral (5 mg) 1 tablet, daily MetFORMIN HCl Oral 500 mg, 2x a day Metoprolol Tartrate Oral (25 mg) 1 tablet, 2x daily Propranolol HCl 20mg , 3x a day, prn Salsalate Oral (750 mg) 1 tablet, daily , every 8 hours as needed The source(s) of the original Home Medication information: Not obtained. The following Medications were given to the patient in the Emergency Department: None. The following Medications were prescribed to the patient: Macrobid 100 mg: Take 1 capsule orally every 12 hours for 7 days. No refills. Substitution is permissible. -- Ingrid Craig A.R.N.P.
== END ==
LOC: ED SRH 14:40
DX: N30.20 Other chronic cystitis without hematuria (principal); J44.9 Chronic obstructive pulmonary disease, unspecified; I10 Essential (primary) hypertension; E11.9 Type 2 diabetes mellitus without complications; Z79.899 Other long term (current) drug therapy; Z79.84 Long term (current) use of oral hypoglycemic drugs
CPT/HCPCS: 90004; 90070; 90469; 91672

== ENCOUNTER 2016-09-12 16:56 | Emergency (ER) | payer OTHER ==
--- NOTE | 2016-09-12 17:26 | ED ORDER SUMMARY ---
..... Patient: JAYME KINSEY OrderSheet [facility] VisitID: [id number] [address] [place] [address] 61y, M Registration Date/Time: 09/12/2016 ORDER SHEET Weight: 122.9 kg (stated) Allergies: NKA GENERAL ORDERS: UA-Culture if indicated Urgent (17:07 09/12/2016 Jordan JAMISON) (Ack 17:14 LNations ER Tech1) (17:25 DDean R.N.) MEDICATION ORDERS: Nitrofurantoin PO 100 mg (NOW) (17:22 09/12/2016 Jordan JAMISON) (Ack 17:25 DDean R.N.) (17:44 DDean R.N.) IV FLUIDS: ORDER SHEET NOTES: [Electronically signed by Cheri Lindsey R.N. (17:47 09/12/2016)] [Electronically signed by Ghulam Rao DO (20:44 09/12/2016)] [Electronically locked/signed by Cheri Lindsey R.N. (17:47 09/12/2016)]
--- NOTE | 2016-09-12 17:26 | ED CLINICAL REPORT ---
Clinical Report - Physicians/Mid Levels [facility] [address] [place] [address] 09/12/2016 16:57 Patient: JAYME KINSEY Time Seen: 17:06. Arrived- By private vehicle. Historian- patient. HISTORY OF PRESENT ILLNESS Chief Complaint: DYSURIA. This started about 3 days ago and is still present. The problem is described as moderate. It was gradual in onset and has been waxing/waning. The patient has had discomfort with urination (with "white clumps"). No testicular pain, flank pain, inguinal swelling or problem with the foreskin. He has been voiding small amounts. (self caths 4-6xdaily). Similar symptoms previously: Many times. Recent medical care: The patient was seen recently at this facility in a clinic. ( He missed his appt today with his pcp and psychologist). Seen for similar symptoms. Diagnosis: Urinary Tract Infection. REVIEW OF SYSTEMS No fever, chills, flank pain, hematuria or abdominal pain. No vomiting, diarrhea, black stools, bloody stools or headache. No sore throat, chest pain, difficulty breathing or skin rash. The patient has had moderate sinus pain (right maxillary). Associated symptoms do not include fever or drainage. He has had mild toothache involving multiple teeth (right upper canine, right upper incisor). All systems otherwise negative, except as recorded above. PAST HISTORY ( PCP: MARISSA and [facility] Urologist: [place] See nurses notes. PROBLEMS: Depression Urinary Calculi. UTI - Urinary Tract Infection. Ureterolithiasis. Nephrolithiasis. COPD - Chronic Obstructive Pulmonary Disease. Contusion. Crush Injury. Diabetes Mellitus. Conjunctivitis. Blepharitis. Influenza. Acute Pain. Back Pain. Nail Avulsion. Suture Removal. Chronic Back Pain. Depression. Hyperlipidemia. Wound Infection. Burn. Elevated Cholesterol. Laceration. Hypertension. Renal Colic [RuleOut]. UTI - Urinary Tract Infection [RuleOut]. SURGERIES: Appendectomy. Lithotripsy). SOCIAL HISTORY Never smoker. Occasional alcohol use. No drug use. Is a local resident. ADDITIONAL NOTES The nursing notes have been reviewed. PHYSICAL EXAM Vital Signs: 09/12/2016 17:05 BP: 124/73. HR: 80. RR: 18. O2 saturation: 97%. Temp: 98.6 F. Pain level now: 0/10. Appearance: Alert. Oriented X3. No acute distress. Eyes: No scleral icterus or pale conjunctivae. ENT: Normal external inspection. Pharynx normal. No hearing deficit or pharyngeal erythema. Neck: Neck supple. CVS: Heart sounds normal. Respiratory: No respiratory distress. Breath sounds normal. Abdomen: Soft and nontender. No mass. Obese. Back: Normal external inspection. No CVA tenderness. : Normal genitalia. No urethral discharge, genital lesion, herpes-like lesions or paraphimosis. No scrotal mass or swelling. Skin: Skin warm and dry. Normal skin color. No rash. Normal skin turgor. Extremities: Extremities exhibit normal ROM. No lower extremity edema. Neuro: Oriented X 3. No motor deficit. LABS, X-RAYS, AND EKG Laboratory Tests: UA-Culture if indicated: (MC: 09/12/2016 17:15) ( MsgRcvd 09/12/2016 17:46) Final results Test Result Flag Units (Reference) URINE COLOR YELLOW URINE APPEARANCE HAZY URINE GLUCOSE NEGATIVE (NEGATIVE) URINE BILIRUBIN NEGATIVE (NEGATIVE) URINE KETONE NEGATIVE (NEGATIVE) URINE SPECIFIC GRAVITY >= 1.030 (1.010-1.030) URINE PH 6.0 (5.0-8.0) URINE PROTEIN NEGATIVE (NEGATIVE) URINE UROBILINOGEN 0.2 EU/dL (0.2-1.0) URINE NITRITE POSITIVE (NEGATIVE) URINE BLOOD NEGATIVE (NEGATIVE) URINE LEUK ESTERASE POSITIVE (NEGATIVE) URINE RBC NONE SEEN rbc/hpf (0-1) URINE WBC 25-50 wbc/hpf (0-1) URINE EPITHELIAL CELLS 1-3 EPI/hpf (0-5) URINE BACTERIA FEW (1+) (NONE SEEN) URINE COMMENT CULTURE INDICATED URINE CULTURES ARE SET-UP BASED ON THE FOLLOWING CRITERIA:POSITIVE NITRITEPOSITIVE LEUKOCYTE ESTERASEGREATER THAN 10 WHITE BLOOD CELLSMODERATE (2+) OR GREATER BACTERIA . Microbiology: Urine culture ordered. Pulse Oximetry: 09/12/2016 17:05 O2 saturation: 97%. (FIO2 - room air). Interpretation: normal. PROGRESS AND PROCEDURES Course of Care: Nitrofurantoin 100 mg PO given. No systemic symptoms / fever. All c/w UTI. Will try nitrofurantion - urine culture was sensitive about 2 months ago and pt reluctant to try cipro. Patient/family counseled. Old ED records reviewed. Patient has had multiple ED visits. Disposition: Discharged. Condition: stable and improved. CLINICAL IMPRESSION Acute urinary tract infection with cystitis. Mild dental pain. Possible acute maxillary sinusitis INSTRUCTIONS Drink plenty of fluids. Warnings: Further evaluation is necessary in order to obtain test results and conduct further tests. It is very important to follow up with a physician. GENERAL WARNINGS: Return or contact your physician immediately if your condition worsens or changes unexpectedly, if not improving as expected, or if other problems arise. Prescription Medications: Macrobid 100 mg: Take 1 capsule orally every 12 hours for 7 days. No refills. Substitution is permissible. Follow-up: Follow up with a urologist. Call for the next available appointment. Follow-up with: [facility], , [address] [place] [address] Follow up in about two days. (Electronically signed by Ghulam Rao DO 09/12/2016 20:44)
--- NOTE | 2016-09-12 17:26 | ED NURSING NOTES ---
Clinical Report - Nurses [facility] [address] [place] [address] 09/12/2016 16:57 Patient: JAYME KINSEY TRIAGE Triage time 1705. Acuity: LEVEL 3. Chief Complaint: (pt missed dr appointment today- but wanted to get urine checked anyway. states it actually looks better than it has been-- has hx of frequent UTI's). --17:25 Cheri Lindsey R.N. 17:05 09/12/16. BP: 124/73. HR: 80. RR: 18. O2 saturation: 97%. Temp: 98.6 F. Pain level now: 0/10. --17:25 Cheri Lindsey R.N. Weight: 122.9 kg stated. Height/Length: 70 inches Per Patient. BMI: 38.9. --17:12 Cheri Lindsey R.N. Medications Atorvastatin Calcium Oral (Tablet 10 mg) 1 tablet, daily. Carbidopa-Levodopa Oral 50/200 mg, daily. Lisinopril Oral (Tablet 5 mg) 1 tablet, daily. MetFORMIN HCl Oral 500 mg, 2x a day. Metoprolol Tartrate Oral (Tablet 25 mg) 1 tablet, 2x daily. Propranolol HCl 20mg , 3x a day (prn). Salsalate Oral (Tablet 750 mg) 1 tablet, daily as needed (every 8 hours as needed). --17:23 Cheri Lindsey R.N. Allergies NKA. --17:23 Cheri Lindsey R.N. History Arrived by private vehicle. Historian: patient. Unaccompanied. Primary physician (chika). ( Pt has had "white lumpy stuff and foul smell " to urine for last week). ( Pt self caths due to bladder weakness). SOCIAL HX: Never smoker. Occasional alcohol use. No drug use. --17:25 Cheri Lindsey R.N. PROBLEMS: Urinary Calculi. UTI - Urinary Tract Infection. Ureterolithiasis. Nephrolithiasis. COPD - Chronic Obstructive Pulmonary Disease. Diabetes Mellitus. Conjunctivitis. Blepharitis. Acute Pain. Back Pain. Chronic Back Pain. Depression. Hyperlipidemia. Elevated Cholesterol. Hypertension. --17:11 Cheri Lindsey R.N. ADDITIONAL SURGERIES: Appendectomy. Lithotripsy. --17:11 Cheri Lindsey R.N. Interventions ID band on patient. To treatment room. --17:25 Cheri Lindsey R.N. PHYSICAL ASSESSMENT 1709. Ambulatory to room. Patient gowned. GENERAL / NEURO / PSYCH: Alert. Oriented X 4. Appears in no acute distress. ( also c/o right ear pain, sinus pain). RESPIRATORY: Respirations not labored. CVS: Capillary refill less than 2 seconds. GI / : ( cloudy , foul smelling urine.). SKIN: Skin is warm and dry. --17:18 Cheri Lindsey R.N. NURSING PROGRESS NOTES 17:09 09/12/16. Patient gowned. Head of bed elevated. Reassurance given. Patient identifiers checked. Call light placed in reach. Side rails up. Bed placed in lowest position. --17:09 Cheri Lindsey R.N. 17:12. In/out catheterization. Return of less than 50 mL yellow-colored clear urine. He tolerated procedure (Pt self caths). --17:18 Cheri Lindsey R.N. 17:39 09/12/2016 Nitrofurantoin PO Capsules 100 mg given. Allergies verified and confirmed 5 rights. --17:44 Cheri Lindsey R.N. DISPOSITION / DISCHARGE 17:43. Condition at departure: unchanged and stable. No learning barriers present. Discharge instructions provided and reviewed with the patient. Reviewed medication(s) (macrobid). Reviewed referrals (dental referral sheet given). Patient verbalized understanding. Written instructions provided in Filipino. The patient was discharged home and unaccompanied at time of discharge. He left the Emergency Department ambulatory and via private vehicle. Patient driving. --17:46 Cheri Lindsey R.N. 17:43 09/12/16. BP: 120/70. HR: 78. RR: 18. O2 saturation: 98%. Temp: deferred. Pain level now: 0/10. --17:46 Cheri Lindsey R.N. Locked/Released at 09/12/2016 17:47 by Cheri Lindsey R.N.
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
--- NOTE | 2016-09-12 17:26 | ED ORDER SUMMARY ---
..... Patient: JAYME KINSEY OrderSheet [facility] VisitID: [id number] [address] [place] [address] 61y, M Registration Date/Time: 09/12/2016 ORDER SHEET Weight: 122.9 kg (stated) Allergies: NKA GENERAL ORDERS: UA-Culture if indicated Urgent (17:07 09/12/2016 Jordan JAMISON) (Ack 17:14 LNations ER Tech1) (17:25 DDean R.N.) MEDICATION ORDERS: Nitrofurantoin PO 100 mg (NOW) (17:22 09/12/2016 Jordan JAMISON) (Ack 17:25 DDean R.N.) (17:44 DDean R.N.) IV FLUIDS: ORDER SHEET NOTES: [Electronically signed by Cheri Lindsey R.N. (17:47 09/12/2016)] [Electronically signed by Ghulam Rao DO (20:44 09/12/2016)] [Electronically locked/signed by Cheri Lindsey R.N. (17:47 09/12/2016)]
--- NOTE | 2016-09-12 20:44 | ED MAR SUMMARY ---
..... Medication Administration Record [facility] [address] [place] [address] Patient: JAYME KINSEY Visit ID: [id number] 61y, M Weight: 122.9 kg Height/Length: 70 in BMI: 38.9 ALLERGIES: NKA Given 17:39 09/12/2016 César, Luly Alonzo Medication Administered: NITROFURANTOIN [PO], Dose: 100 mg Capsules PO. Medication Ordered: Nitrofurantoin PO 100 mg (NOW).
--- NOTE | 2016-09-12 20:44 | ED DISCHARGE INSTRUCTIONS ---
Patient: JAYME KINSEY General Instructions Located Within [facility] VisitID: [id number] [place] [address] 61y, M Registration Date/Time: 09/12/2016 Acute urinary tract infection with cystitis. Mild dental pain. INSTRUCTIONS Drink plenty of fluids. Warnings: Further evaluation is necessary in order to obtain test results and conduct further tests. It is very important to follow up with a physician. GENERAL WARNINGS: Return or contact your physician immediately if your condition worsens or changes unexpectedly, if not improving as expected, or if other problems arise. Prescription Medications: Macrobid 100 mg: Take 1 capsule orally every 12 hours for 7 days. No refills. Substitution is permissible. Follow-up: Follow up with a urologist. Call for the next available appointment. Follow-up with: [facility], [facility], , [address] [place] [address] Follow up in about two days. ADDITIONAL INFORMATION Bladder Infection,Male (Adult) A bladder infection ("cystitis" or "UTI") usually causes a constant urge to urinate, and a burning when passing urine. Urine may be cloudy, smelly or dark. There may be also be pain in the lower abdomen. Cystitis in males is not common. It may be caused by a partial blockage in the urinary system that keeps the bladder from emptying completely. This is most often related to an enlarged prostate gland. Home Care: Drink lots of fluids (at least 6-8 glasses a day). This will flush the bacteria out of your bladder. Avoid sexual intercourse until your symptoms are gone. Avoid caffeine, alcohol, and spicy foods. They could irritate the bladder. A bladder infection is treated with antibiotics. You may also be given Pyridium (generic - phenazopyridine) to reduce burning with urination. This will cause urine to become a bright orange color, which can stain clothing. Follow Up with your doctor or this facility if ALL symptoms have not cleared within five days. It is important to keep your follow up appointment to discuss with your doctor the need for further tests of the urinary tract. Get Prompt Medical Attention if any of the following occur: Fever of 100.4F (38C) or higher, or as directed by your healthcare provider No improvement by the third day of treatment Increasing back or abdominal pain Repeated vomiting; unable to keep medicine down Weakness, dizziness or fainting Dental Pain A crack or cavity in the tooth, which exposes the sensitive inner area of the tooth can cause tooth pain. An infection in the gum or the root of the tooth can cause pain and swelling. The pain is often made worse by drinking hot or cold fluids, or biting on hard foods. Pain may spread from the tooth to the ear or jaw on the same side. Home Care: Avoid hot and cold foods and liquids since your tooth may be sensitive to temperature changes. If your tooth is chipped or cracked, or if there is a large open cavity, apply OIL OF CLOVES (available zmes-sre-dezxtcs in drug stores) directly to the tooth to reduce pain. Some pharmacies carry an bzap-flw-ljebzvl "toothache kit." This contains a paste, which can be applied over the exposed tooth to decrease sensitivity. A cold pack on your jaw over the sore area may help reduce pain. You may use acetaminophen (Tylenol) or ibuprofen (Motrin, Advil) to control pain, unless another medicine was prescribed. [ NOTE: If you have chronic liver or kidney disease or ever had a stomach ulcer or GI bleeding, talk with your doctor before using these medicines.] If you have signs of an infection, an antibiotic will be given. Take it as directed. Follow-Up as directed with a dentist. Your pain may go away with the treatment given. However, only a dentist can fully evaluate and treat the cause and prevent the pain from coming back again. TOOTHACHE IS A SIGN OF DISEASE IN YOUR TOOTH AND SHOULD BE EXAMINED AND TREATED BY A DENTIST. Get Prompt Medical Attention if any of the following occur: Your face becomes swollen or red Pain worsens or spreads to the neck Fever over 100.4 F (38.0 C) Unusual drowsiness; headache or stiff neck; weakness or fainting Pus drains from the tooth Difficulty swallowing or breathing Sinusitis [No Abx Tx] The sinuses are air-filled spaces within the bones of the face. They connect to the inside of the nose. Sinusitis is an inflammation of the tissue lining the sinus cavity. Sinus inflammation can occur during a cold or hay-fever (allergies to pollens and other particles in the air) and cause symptoms of sinus congestion and fullness and perhaps a low-grade fever. This does not require antibiotic treatment. Home Care: Drink plenty of water, hot tea, and other liquids to stay well hydrated. This thins the mucus and promotes sinus drainage. Apply heat to the painful areas of the face. Use a towel soaked in hot water. Or, brass and wind instrument repairer the shower and direct the hot spray onto your face. This is a good way to inhale warm water vapor and get heat on your face at the same time. (Cover your mouth and nose with your hands so you can still breathe as you do this.) Use a vaporizer with products such as [employer] VapoRub (contains menthol) at night. Suck on peppermint, menthol or eucalyptus hard candies during the day. An expectorant containing guaifenesin (such as Robitussin), helps to thin the mucus and promote drainage from the sinuses. Tlxb-uky-wqcyhjq decongestants may be used unless a similar medicine was prescribed. Nasal sprays work the fastest. Use one that contains phenylephrine (Narciso-synephrine, Sinex and others) or oxymetazoline (Afrin). First blow the nose gently to remove mucus, then apply the drops. Do not use these medicines more often than directed on the label or for more than three days or symptoms may worsen. You may also use tablets containing pseudoephedrine (Sudafed). Many sinus remedies combine ingredients, which may increase side effects. Read the labels or ask the pharmacist for help. NOTE: Persons with high blood pressure should not use decongestants. They can raise blood pressure. Antihistamines are useful if allergies are a cause of your sinusitis. The mildest one is chlorpheniramine (available without a prescription). The dose for adults is 8-12mg three times a day. [NOTE: Do not use chlorpheniramine if you have glaucoma or if you are a man with trouble urinating due to an enlarged prostate.] Claritin (loratidine) is an antihistamine that causes less drowsiness and is a good alternative for daytime use. When allergies are the cause for sinusitis, a saline nasal rinse may give relief. Saline nasal rinse reduces swelling and clears excess mucus. This allows sinuses to drain. Pre-packaged kits are available at most drug stores. These contain pre-mixed salt packets and an irrigation device. You may use acetaminophen (Tylenol) or ibuprofen (Motrin, Advil) to control pain, unless another pain medicine was prescribed. [ NOTE: If you have chronic liver or kidney disease or ever had a stomach ulcer, talk with your doctor before using these medicines.] (Aspirin should never be used in anyone under 18 years of age who is ill with a fever. It may cause severe liver damage.) Follow Up with your doctor or this facility in one week or as instructed by our staff if not improving. Get Prompt Medical Attention if any of the following occur: Green or yellow drainage from the nose or into the back of the throat (post-nasal drip) Worsening sinus pain or headache Stiff neck Unusual drowsiness, confusion or not acting like your normal self Swelling of the forehead or eyelids Vision problems including blurred or double vision Fever of 100.4F (38C) or higher, or as directed by your healthcare provider Seizure Nitrofurantoin, Nitrofurantoin, Macrocrystalline Oral capsule What is this medicine? NITROFURANTOIN (sherman DANIEL toybyron) is an antibiotic. It is used to treat urinary tract infections. How should I use this medicine? Take this medicine by mouth with a glass of water. Follow the directions on the prescription label. Take this medicine with food or milk. Take your doses at regular intervals. Do not take your medicine more often than directed. Do not stop taking except on your doctor's advice. Talk to your senior sales compensation analyst regarding the use of this medicine in children. While this drug may be prescribed for selected conditions, precautions do apply. What side effects may I notice from receiving this medicine? Side effects that you should report to your doctor or health career services officer as soon as possible: allergic reactions like skin rash or hives, swelling of the face, lips, or tongue chest pain cough difficulty breathing dizziness, drowsiness fever or infection joint aches or pains pale or blue-tinted skin redness, blistering, peeling or loosening of the skin, including inside the mouth tingling, burning, pain, or numbness in hands or feet unusual bleeding or bruising unusually weak or tired yellowing of eyes or skin Side effects that usually do not require medical attention (report to your doctor or health career services officer if they continue or are bothersome): dark urine diarrhea headache loss of appetite nausea or vomiting temporary hair loss What may interact with this medicine? antacids containing magnesium trisilicate probenecid quinolone antibiotics like ciprofloxacin, lomefloxacin, norfloxacin and ofloxacin sulfinpyrazone What if I miss a dose? If you miss a dose, take it as soon as you can. If it is almost time for your next dose, take only that dose. Do not take double or extra doses. Where should I keep my medicine? Keep out of the reach of children. Store at room temperature between 15 and 30 degrees C (59 and 86 degrees F). Protect from light. Throw away any unused medicine after the expiration date. What should I tell my health care provider before I take this medicine? They need to know if you have any of these conditions: anemia diabetes qbipgrl-[id number]-yjvvijawz dehydrogenase deficiency kidney disease liver disease lung disease other chronic illness an unusual or allergic reaction to nitrofurantoin, other antibiotics, other medicines, foods, dyes or preservatives or trying to get breast-feeding What should I watch for while using this medicine? Tell your doctor or health career services officer if your symptoms do not improve or if you get new symptoms. Drink several glasses of water a day. If you are taking this medicine for a long time, visit your doctor for regular checks on your progress. If you are diabetic, you may get a false positive result for sugar in your urine with certain brands of urine tests. Check with your doctor. You have been given the following additional information: Bladder Infection, Male (Adult) Dental Pain Sinusitis, No Abx Nitrofurantoin, Nitrofurantoin, Macrocrystalline Oral capsule (Electronically signed by Ghulam Rao DO 09/12/2016 20:44)
--- NOTE | 2016-09-12 20:44 | ED MED RECONCILIATION SUMMARY ---
Patient: JAYME KINSEY Medication Reconciliation Report [facility] VisitID: [id number] [address] [place] [place] [address] 61y, M Registration Date/Time: 09/12/2016 Weight: 122.9 kg Height/Length: 70 in. BMI: 38.9 ALLERGIES: NKA The patient's Home Medications are listed below: THE FOLLOWING MEDICATIONS NEED TO BE RECONCILED: Atorvastatin Calcium Oral (10 mg) 1 tablet, daily Carbidopa-Levodopa Oral 50/200 mg, daily Lisinopril Oral (5 mg) 1 tablet, daily MetFORMIN HCl Oral 500 mg, 2x a day Metoprolol Tartrate Oral (25 mg) 1 tablet, 2x daily Propranolol HCl 20mg , 3x a day, prn Salsalate Oral (750 mg) 1 tablet, daily , every 8 hours as needed The source(s) of the original Home Medication information: Not obtained. The following Medications were given to the patient in the Emergency Department: Nitrofurantoin [PO] PO 100 mg, administered: 09/12/2016 5:39:00 PM The following Medications were prescribed to the patient: Macrobid 100 mg: Take 1 capsule orally every 12 hours for 7 days. No refills. Substitution is permissible. -- Ghulam Rao DO
--- NOTE | 2016-09-12 20:44 | ED DISCHARGE INSTRUCTIONS ---
Patient: JAYME KINSEY General Instructions [facility] VisitID: [id number] [place] [address] 61y, M Registration Date/Time: 09/12/2016 Acute urinary tract infection with cystitis. Mild dental pain. INSTRUCTIONS Drink plenty of fluids. Warnings: Further evaluation is necessary in order to obtain test results and conduct further tests. It is very important to follow up with a physician. GENERAL WARNINGS: Return or contact your physician immediately if your condition worsens or changes unexpectedly, if not improving as expected, or if other problems arise. Prescription Medications: Macrobid 100 mg: Take 1 capsule orally every 12 hours for 7 days. No refills. Substitution is permissible. Follow-up: Follow up with a urologist. Call for the next available appointment. Follow-up with: [facility], [facility], , [address] [place] [address] Follow up in about two days. ADDITIONAL INFORMATION Bladder Infection,Male (Adult) A bladder infection ("cystitis" or "UTI") usually causes a constant urge to urinate, and a burning when passing urine. Urine may be cloudy, smelly or dark. There may be also be pain in the lower abdomen. Cystitis in males is not common. It may be caused by a partial blockage in the urinary system that keeps the bladder from emptying completely. This is most often related to an enlarged prostate gland. Home Care: Drink lots of fluids (at least 6-8 glasses a day). This will flush the bacteria out of your bladder. Avoid sexual intercourse until your symptoms are gone. Avoid caffeine, alcohol, and spicy foods. They could irritate the bladder. A bladder infection is treated with antibiotics. You may also be given Pyridium (generic - phenazopyridine) to reduce burning with urination. This will cause urine to become a bright orange color, which can stain clothing. Follow Up with your doctor or this facility if ALL symptoms have not cleared within five days. It is important to keep your follow up appointment to discuss with your doctor the need for further tests of the urinary tract. Get Prompt Medical Attention if any of the following occur: Fever of 100.4F (38C) or higher, or as directed by your healthcare provider No improvement by the third day of treatment Increasing back or abdominal pain Repeated vomiting; unable to keep medicine down Weakness, dizziness or fainting Dental Pain A crack or cavity in the tooth, which exposes the sensitive inner area of the tooth can cause tooth pain. An infection in the gum or the root of the tooth can cause pain and swelling. The pain is often made worse by drinking hot or cold fluids, or biting on hard foods. Pain may spread from the tooth to the ear or jaw on the same side. Home Care: Avoid hot and cold foods and liquids since your tooth may be sensitive to temperature changes. If your tooth is chipped or cracked, or if there is a large open cavity, apply OIL OF CLOVES (available zozd-tcm-xleuolq in drug stores) directly to the tooth to reduce pain. Some pharmacies carry an akkx-aar-bcyaqiw "toothache kit." This contains a paste, which can be applied over the exposed tooth to decrease sensitivity. A cold pack on your jaw over the sore area may help reduce pain. You may use acetaminophen (Tylenol) or ibuprofen (Motrin, Advil) to control pain, unless another medicine was prescribed. [ NOTE: If you have chronic liver or kidney disease or ever had a stomach ulcer or GI bleeding, talk with your doctor before using these medicines.] If you have signs of an infection, an antibiotic will be given. Take it as directed. Follow-Up as directed with a dentist. Your pain may go away with the treatment given. However, only a dentist can fully evaluate and treat the cause and prevent the pain from coming back again. TOOTHACHE IS A SIGN OF DISEASE IN YOUR TOOTH AND SHOULD BE EXAMINED AND TREATED BY A DENTIST. Get Prompt Medical Attention if any of the following occur: Your face becomes swollen or red Pain worsens or spreads to the neck Fever over 100.4 F (38.0 C) Unusual drowsiness; headache or stiff neck; weakness or fainting Pus drains from the tooth Difficulty swallowing or breathing Sinusitis [No Abx Tx] The sinuses are air-filled spaces within the bones of the face. They connect to the inside of the nose. Sinusitis is an inflammation of the tissue lining the sinus cavity. Sinus inflammation can occur during a cold or hay-fever (allergies to pollens and other particles in the air) and cause symptoms of sinus congestion and fullness and perhaps a low-grade fever. This does not require antibiotic treatment. Home Care: Drink plenty of water, hot tea, and other liquids to stay well hydrated. This thins the mucus and promotes sinus drainage. Apply heat to the painful areas of the face. Use a towel soaked in hot water. Or, lease administration analyst the shower and direct the hot spray onto your face. This is a good way to inhale warm water vapor and get heat on your face at the same time. (Cover your mouth and nose with your hands so you can still breathe as you do this.) Use a vaporizer with products such as ChannelMeter VapoRub (contains menthol) at night. Suck on peppermint, menthol or eucalyptus hard candies during the day. An expectorant containing guaifenesin (such as Robitussin), helps to thin the mucus and promote drainage from the sinuses. Tibc-cfp-esnwzrs decongestants may be used unless a similar medicine was prescribed. Nasal sprays work the fastest. Use one that contains phenylephrine (Narciso-synephrine, Sinex and others) or oxymetazoline (Afrin). First blow the nose gently to remove mucus, then apply the drops. Do not use these medicines more often than directed on the label or for more than three days or symptoms may worsen. You may also use tablets containing pseudoephedrine (Sudafed). Many sinus remedies combine ingredients, which may increase side effects. Read the labels or ask the pharmacist for help. NOTE: Persons with high blood pressure should not use decongestants. They can raise blood pressure. Antihistamines are useful if allergies are a cause of your sinusitis. The mildest one is chlorpheniramine (available without a prescription). The dose for adults is 8-12mg three times a day. [NOTE: Do not use chlorpheniramine if you have glaucoma or if you are a man with trouble urinating due to an enlarged prostate.] Claritin (loratidine) is an antihistamine that causes less drowsiness and is a good alternative for daytime use. When allergies are the cause for sinusitis, a saline nasal rinse may give relief. Saline nasal rinse reduces swelling and clears excess mucus. This allows sinuses to drain. Pre-packaged kits are available at most drug stores. These contain pre-mixed salt packets and an irrigation device. You may use acetaminophen (Tylenol) or ibuprofen (Motrin, Advil) to control pain, unless another pain medicine was prescribed. [ NOTE: If you have chronic liver or kidney disease or ever had a stomach ulcer, talk with your doctor before using these medicines.] (Aspirin should never be used in anyone under 18 years of age who is ill with a fever. It may cause severe liver damage.) Follow Up with your doctor or this facility in one week or as instructed by our staff if not improving. Get Prompt Medical Attention if any of the following occur: Green or yellow drainage from the nose or into the back of the throat (post-nasal drip) Worsening sinus pain or headache Stiff neck Unusual drowsiness, confusion or not acting like your normal self Swelling of the forehead or eyelids Vision problems including blurred or double vision Fever of 100.4F (38C) or higher, or as directed by your healthcare provider Seizure Nitrofurantoin, Nitrofurantoin, Macrocrystalline Oral capsule What is this medicine? NITROFURANTOIN (sherman DANIEL toybyron) is an antibiotic. It is used to treat urinary tract infections. How should I use this medicine? Take this medicine by mouth with a glass of water. Follow the directions on the prescription label. Take this medicine with food or milk. Take your doses at regular intervals. Do not take your medicine more often than directed. Do not stop taking except on your doctor's advice. Talk to your aluminum siding applicator regarding the use of this medicine in children. While this drug may be prescribed for selected conditions, precautions do apply. What side effects may I notice from receiving this medicine? Side effects that you should report to your doctor or health career technical supervisor as soon as possible: allergic reactions like skin rash or hives, swelling of the face, lips, or tongue chest pain cough difficulty breathing dizziness, drowsiness fever or infection joint aches or pains pale or blue-tinted skin redness, blistering, peeling or loosening of the skin, including inside the mouth tingling, burning, pain, or numbness in hands or feet unusual bleeding or bruising unusually weak or tired yellowing of eyes or skin Side effects that usually do not require medical attention (report to your doctor or health career technical supervisor if they continue or are bothersome): dark urine diarrhea headache loss of appetite nausea or vomiting temporary hair loss What may interact with this medicine? antacids containing magnesium trisilicate probenecid quinolone antibiotics like ciprofloxacin, lomefloxacin, norfloxacin and ofloxacin sulfinpyrazone What if I miss a dose? If you miss a dose, take it as soon as you can. If it is almost time for your next dose, take only that dose. Do not take double or extra doses. Where should I keep my medicine? Keep out of the reach of children. Store at room temperature between 15 and 30 degrees C (59 and 86 degrees F). Protect from light. Throw away any unused medicine after the expiration date. What should I tell my health care provider before I take this medicine? They need to know if you have any of these conditions: anemia diabetes kywrpki-[id number]-ijhqznctf dehydrogenase deficiency kidney disease liver disease lung disease other chronic illness an unusual or allergic reaction to nitrofurantoin, other antibiotics, other medicines, foods, dyes or preservatives or trying to get breast-feeding What should I watch for while using this medicine? Tell your doctor or health career technical supervisor if your symptoms do not improve or if you get new symptoms. Drink several glasses of water a day. If you are taking this medicine for a long time, visit your doctor for regular checks on your progress. If you are diabetic, you may get a false positive result for sugar in your urine with certain brands of urine tests. Check with your doctor. You have been given the following additional information: Bladder Infection, Male (Adult) Dental Pain Sinusitis, No Abx Nitrofurantoin, Nitrofurantoin, Macrocrystalline Oral capsule (Electronically signed by Ghulam Rao DO 09/12/2016 20:44)
--- NOTE | 2016-09-12 20:44 | ED MAR SUMMARY ---
..... Medication Administration Record [facility] [address] [place] [address] Patient: JAYME KINSEY Visit ID: [id number] 61y, M Weight: 122.9 kg Height/Length: 70 in BMI: 38.9 ALLERGIES: NKA Given 17:39 09/12/2016 César, Luly Alonzo Medication Administered: NITROFURANTOIN [PO], Dose: 100 mg Capsules PO. Medication Ordered: Nitrofurantoin PO 100 mg (NOW).
--- NOTE | 2016-09-12 20:44 | ED MED RECONCILIATION SUMMARY ---
Patient: JAYME KINSEY Medication Reconciliation Report [facility] VisitID: [id number] [address] [place] [address] 61y, M Registration Date/Time: 09/12/2016 Weight: 122.9 kg Height/Length: 70 in. BMI: 38.9 ALLERGIES: NKA The patient's Home Medications are listed below: THE FOLLOWING MEDICATIONS NEED TO BE RECONCILED: Atorvastatin Calcium Oral (10 mg) 1 tablet, daily Carbidopa-Levodopa Oral 50/200 mg, daily Lisinopril Oral (5 mg) 1 tablet, daily MetFORMIN HCl Oral 500 mg, 2x a day Metoprolol Tartrate Oral (25 mg) 1 tablet, 2x daily Propranolol HCl 20mg , 3x a day, prn Salsalate Oral (750 mg) 1 tablet, daily , every 8 hours as needed The source(s) of the original Home Medication information: Not obtained. The following Medications were given to the patient in the Emergency Department: Nitrofurantoin [PO] PO 100 mg, administered: 09/12/2016 5:39:00 PM The following Medications were prescribed to the patient: Macrobid 100 mg: Take 1 capsule orally every 12 hours for 7 days. No refills. Substitution is permissible. -- Ghulam Rao DO
== END 2016-09-12 17:43 | disposition home or self-care (01) ==
LOC: ED SRH 16:56
DX: N30.90 Cystitis, unspecified without hematuria (principal); K08.89 Other specified disorders of teeth and supporting structures; I10 Essential (primary) hypertension; E11.9 Type 2 diabetes mellitus without complications; E78.5 Hyperlipidemia, unspecified; Z79.84 Long term (current) use of oral hypoglycemic drugs; Z79.899 Other long term (current) drug therapy
CPT/HCPCS: 90004; 90070; 90148; 90469; 91672